=== PATIENT | male | born 1945 | race Caucasian/White ===

== ENCOUNTER 2017-04-25 09:46 | Inpatient (IN) | payer OTHER, MEDICARE ==
[~2017-04-25] VITALS: Ht 180.3 cm; Wt 110.0 kg
[~2017-04-25 09:46] MED LIST: AMLO10TA PO; ASPI-12 PO; ATOR80TA PO; CALC-1197 PO; CYA500T PO; DOCU100C40 PO; FERR325T39 PO; HUM7525 SQ; HYDR-4069 PO; LANTUS SQ; LISI-600 PO; MAGN400T6 PO; METO25TA6 PO; PANT-47 PO; SPIR1TAB PO; SULF500T59 PO; VENL100T4 PO
[2017-04-25] MEDS ORDERED: normal saline 1000ML IV soln IVB ONE (09:55)
[2017-04-25] MEDS ORDERED: morphine 4 MG/ML inj SYRINge IV ONE (10:20)
[2017-04-25] MEDS ORDERED: furosemide 10 MG/1 ML 10ml inj IV ONE (10:20)
[2017-04-25 10:23] LABS: BASOPHILS % (AUTO) 0.5 % (0-1); EOSINOPHILS # (AUTO) 0.2 X10'3 (0-0.9); EOSINOPHILS % (AUTO) 2.2 % (0-6); HEMATOCRIT 37.8 % (42.0-52.0); HEMOGLOBIN 13.3 g/dl (14.0-17.9); LYMPHOCYTES # (AUTO) 2.1 X10'3 (1.1-4.8); LYMPHOCYTES % (AUTO) 20.7 % (21-51); MEAN CORPUSCULAR HEMOGLOBIN 32.6 PG (27.0-31.0); MEAN CORPUSCULAR HGB CONC 35.2 % (33.0-36.5); MEAN CORPUSCULAR VOLUME 92.6 FL (78-98); MEAN PLATELET VOLUME 8.4 FL (7.4-10.4); MONOCYTES # (AUTO) 1.2 X10'3 (0-0.9); MONOCYTES % (AUTO) 12.2 % (2-12); NEUTROPHILS # (AUTO) 6.5 X10'3 (1.8-7.7); NEUTROPHILS % (AUTO) 64.4 % (42-75); PLATELET COUNT 258 X10'3 (140-440); RED BLOOD COUNT 4.08 X10'6 (4.70-6.10); RED CELL DISTRIBUTION WIDTH 13.7 % (11.5-14.5); WHITE BLOOD COUNT 10.1 X10'3 (4.5-11.0)
[2017-04-25] MEDS ORDERED: diltiazem 5mg/ml 5ml inj. IV ONE ×3 (10:25→21:40)
[2017-04-25 10:30] LABS: INR 1.1 INR; PARTIAL THROMBOPLASTIN TIME 26 SECONDS (22-32); PROTHROMBIN TIME 11.5 SECONDS (9.0-12.0)
[2017-04-25] MEDS ORDERED: ipratropium/albuterol 3ml nebule NEB ONE (10:50)
[2017-04-25 10:56] LABS: ALANINE AMINOTRANSFERASE 42 U/L (12-78); ALBUMIN 3.5 G/DL (3.4-5.0); ALKALINE PHOSPHATASE 82 IU/L (46-116); ANION GAP 11 (8-16); ASPARTATE AMINO TRANSFERASE 33 U/L (10-37); BILIRUBIN,TOTAL 0.5 MG/DL (0.1-1.0); BLOOD UREA NITROGEN 26 MG/DL (7-18); BUN/CREATININE RATIO 18.4 (5.4-32.0); CHLORIDE 108 MMOL/L (99-107); CREATININE 1.41 MG/DL (0.60-1.10); GLUCOSE 211 MG/DL (70-104); LIPASE 107 U/L (73-393); POTASSIUM 3.3 MMOL/L (3.5-5.1); SODIUM 145 MMOL/L (135-145); TOTAL CARBON DIOXIDE 25.6 MMOL/L (24-32); TOTAL PROTEIN 6.9 G/DL (6.4-8.2); eGFR 50 ML/MIN
[2017-04-25 11:57] LABS: CLARITY,URINE CLEAR (Clear); COLOR,URINE YELLOW (Yellow); GLUCOSE, URINE NEGATIVE (Neg); KETONES,URINE NEGATIVE (Neg); LEUKOCYTE ESTERASE ,URINE NEGATIVE (Neg); NITRITES, URINE NEGATIVE (Neg); OCCULT BLOOD,URINE NEGATIVE (Neg); PH,URINE 6.5 (4.8-8.0); PROTEIN,URINE 30 mg/dl (Neg); UA COLLECTION TYPE NON-SPECIFIED; UROBILINOGEN,URINE 0.2 E.U/dL (0.2-1.0)
[2017-04-25 12:15] LABS: BACTERIA,URINE NONE SEEN /HPF (Neg); HYALINE CASTS 0-3 /LPF (NEGATIVE); RBC,URINE NONE SEEN /HPF (0-2); SQUAMOUS EPITHELIAL CELL,UR FEW /LPF (FEW); WBC,URINE 0-4 /HPF (0-4)
[2017-04-25] MEDS ORDERED: ALEN70TA48 PO (17:00)
[2017-04-25] MEDS ORDERED: ALLO100T PO (17:01)
[2017-04-25] MEDS ORDERED: BROM2.5T22 PO ×2 (17:02→17:14)
[2017-04-25] MEDS ORDERED: CARB1DRO (17:03)
[2017-04-25] MEDS ORDERED: TOBR5DRO7 EACHEYE (17:07)
[2017-04-25] MEDS ORDERED: CHOL400T32 PO (17:08)
[2017-04-25] MEDS ORDERED: CYA500T PO (17:10)
[2017-04-25] MEDS ORDERED: AMLO10TA PO (17:11)
[2017-04-25] MEDS ORDERED: ASPI-974 PO (17:12)
[2017-04-25] MEDS ORDERED: ATOR40TA71 PO (17:13)
[2017-04-25] MEDS ORDERED: OSC500T PO (17:14)
[2017-04-25] MEDS ORDERED: ERYT1OIN6 EACHEYE (17:16)
[2017-04-25] MEDS ORDERED: FOLI0.4T2 PO (17:16)
[2017-04-25] MEDS ORDERED: HYDR-3686 PO (17:17)
[2017-04-25] MEDS ORDERED: HUM7525 SQ (17:18)
[2017-04-25] MEDS ORDERED: LOSA100T28 PO (17:19)
[2017-04-25] MEDS ORDERED: LANTUS SQ (17:19)
[2017-04-25] MEDS ORDERED: METO25TA6 PO (17:20)
[2017-04-25] MEDS ORDERED: PANT-47 PO (17:21)
[2017-04-25] MEDS ORDERED: POTA10TA21 PO (17:23)
[2017-04-25] MEDS ORDERED: SULF500T59 PO (17:23)
[2017-04-25] MEDS ORDERED: VENL75TA4 PO (17:25)
[2017-04-25 20:00] VITALS: BP 139/97
[2017-04-25] MEDS ORDERED: enoxaparin 100mg/ml syringe SUBCUT ONE (21:00)
[2017-04-25] MEDS ORDERED: dextrose ORAL solution 15 GM/59 ML bottle PO PRN ×2 (21:20)
[2017-04-25] MEDS ORDERED: non-formulary drug (Alendronate Sodium* (Fosamax*) 1 TABLET) PO SCH (21:20)
[2017-04-25] MEDS ORDERED: glucagon, human recombinant 1mg kit SUBCUT PRN (21:20)
[2017-04-25] MEDS ORDERED: insulin Lispro (HumaLOG) vial - multi-dose SQ SCH (21:20)
[2017-04-25] MEDS ORDERED: MESSAGE TO PHARMACY PO ONE (21:20)
[2017-04-25] MEDS ORDERED: dextrose 50%-water 50ml dispensing syringe IV PRN ×2 (21:20)
[2017-04-25 22:26] LABS: HEMOGLOBIN A1C 8.3 % (4.5-6.2)
[2017-04-25 23:00] VITALS: BP 154/96
[2017-04-26] MEDS ORDERED: magnesium Cl slow-release 64mg tablet PO PRN (00:25)
[2017-04-26] MEDS ORDERED: potassium Cl 20 mEq SR tablet PO PRN (00:25)
[2017-04-26] MEDS ORDERED: magnesium 4gm in 100ml NS 100 ML IV PRN (00:25)
[2017-04-26] MEDS ORDERED: potassium Cl 40MEQ/NS 500ml 500 ML IV PRN ×2 (00:25)
[2017-04-26] MEDS ORDERED: magnesium 2GM in 50ml NS 50 ML IV PRN (00:25)
[2017-04-26] MEDS: potassium Cl 20 mEq SR tablet PO PRN ×4 (00:33→15:59)
[2017-04-26 03:00] VITALS: BP 149/95
[2017-04-26 06:30] VITALS: BP 148/107
[2017-04-26] MEDS: pantoprazole 40mg Tablet.DR PO SCH (07:28)
[2017-04-26] MEDS: allopurinol 100mg tablet PO SCH (07:28)
[2017-04-26] MEDS: amLODIPine 5mg tablet PO SCH (07:28)
[2017-04-26] MEDS: venlafaxine 37.5mg tablet PO SCH ×2 (07:29→20:24)
[2017-04-26] MEDS: losartan 50mg tablet PO SCH (07:29)
[2017-04-26] MEDS: sulfaSALAZINE 500 MG tablet PO SCH ×2 (07:29→20:23)
[2017-04-26] MEDS: atorvastatin 20mg tablet PO SCH (07:30)
[2017-04-26] MEDS: hydrOXYzine 25 MG tablet PO SCH ×3 (07:30→20:25)
[2017-04-26] MEDS: tobramycin/dexamethasone ophthalmic suspension EACHEYE SCH ×3 (07:31→20:28)
[2017-04-26 07:50] LABS: BASOPHILS # (AUTO) 0.1 X10'3 (0-0.2); BASOPHILS % (AUTO) 0.7 % (0-1); EOSINOPHILS # (AUTO) 0.3 X10'3 (0-0.9); EOSINOPHILS % (AUTO) 3.4 % (0-6); HEMATOCRIT 38.2 % (42.0-52.0); LYMPHOCYTES # (AUTO) 1.9 X10'3 (1.1-4.8); LYMPHOCYTES % (AUTO) 25.7 % (21-51); MEAN CORPUSCULAR HEMOGLOBIN 32.2 PG (27.0-31.0); MEAN CORPUSCULAR HGB CONC 34.1 % (33.0-36.5); MEAN CORPUSCULAR VOLUME 94.6 FL (78-98); MEAN PLATELET VOLUME 8.7 FL (7.4-10.4); MONOCYTES # (AUTO) 0.9 X10'3 (0-0.9); MONOCYTES % (AUTO) 11.9 % (2-12); NEUTROPHILS # (AUTO) 4.3 X10'3 (1.8-7.7); NEUTROPHILS % (AUTO) 58.3 % (42-75); PLATELET COUNT 245 X10'3 (140-440); RED BLOOD COUNT 4.03 X10'6 (4.70-6.10); RED CELL DISTRIBUTION WIDTH 13.8 % (11.5-14.5); WHITE BLOOD COUNT 7.4 X10'3 (4.5-11.0)
[2017-04-26] MEDS ORDERED: non-formulary drug (Amlodipine Besylate 1 TABLET) PO SCH (08:00)
[2017-04-26] MEDS ORDERED: non-formulary drug (Atorvastatin Calcium 1 TAB) PO SCH (08:00)
[2017-04-26] MEDS ORDERED: VENLAFAXINE HCL PO SCH (08:00)
[2017-04-26] MEDS ORDERED: aspirin 325mg tablet PO SCH (08:00)
[2017-04-26] MEDS ORDERED: non-formulary drug (Losartan Potassium 1 TAB) PO SCH (08:00)
[2017-04-26] MEDS ORDERED: metoprolol tartrate 25mg tablet PO SCH (08:00)
[2017-04-26 08:18] LABS: ALANINE AMINOTRANSFERASE 45 U/L (12-78); ALBUMIN 3.2 G/DL (3.4-5.0); ALKALINE PHOSPHATASE 74 IU/L (46-116); ANION GAP 10 (8-16); ASPARTATE AMINO TRANSFERASE 31 U/L (10-37); BILIRUBIN,TOTAL 0.5 MG/DL (0.1-1.0); BLOOD UREA NITROGEN 27 MG/DL (7-18); BUN/CREATININE RATIO 19.7 (5.4-32.0); CALCIUM 8.5 MG/DL (8.5-10.1); CHLORIDE 110 MMOL/L (99-107); CREATININE 1.37 MG/DL (0.60-1.10); GLUCOSE 67 MG/DL (70-104); POTASSIUM 3.3 MMOL/L (3.5-5.1); SODIUM 148 MMOL/L (135-145); TOTAL PROTEIN 6.4 G/DL (6.4-8.2); eGFR 51 ML/MIN
[2017-04-26] MEDS ORDERED: furosemide 40mg tablet PO SCH (09:15)
[2017-04-26 11:16] VITALS: BP 102/74
[2017-04-26] MEDS ORDERED: metoprolol tartrate 50mg tablet PO ONE (11:30)
[2017-04-26] MEDS ORDERED: acetaminophen 325mg tablet PO PRN (11:40)
[2017-04-26] MEDS: furosemide 20 MG/2 ML vial IV SCH ×2 (12:03→20:23)
[2017-04-26] MEDS: apixaban 5mg tablet PO SCH ×2 (12:38→20:28)
[2017-04-26 15:34] VITALS: BP 116/81
[2017-04-26] MEDS: potassium Cl 20 mEq SR tablet PO SCH (16:41)
[2017-04-26 19:00] VITALS: BP 125/77
[2017-04-26] MEDS ORDERED: HYDROcodone/acetaminophen 5mg/325mg tablet PO PRN (20:15)
[2017-04-26] MEDS ORDERED: HYDROcodone/acetaminophen 10/325mg tab PO PRN (20:15)
[2017-04-26] MEDS: metoprolol tartrate 25mg tablet PO SCH (20:25)
[2017-04-26] MEDS: morphine 2 MG/ML inj. syringe IV PRN (20:30)
[2017-04-26 23:00] VITALS: BP 107/76
[2017-04-27] MEDS: potassium Cl 20 mEq SR tablet PO PRN (00:38)
[2017-04-27] MEDS: morphine 2 MG/ML inj. syringe IV PRN (00:39)
[2017-04-27 06:27] LABS: MAGNESIUM 1.9 MG/DL (1.5-2.4)
[2017-04-27 06:30] VITALS: BP 111/75
[2017-04-27 08:17] LABS: ALBUMIN 3.2 G/DL (3.4-5.0); ANION GAP 13 (8-16); BLOOD UREA NITROGEN 36 MG/DL (7-18); BUN/CREATININE RATIO 20.8 (5.4-32.0); CALCIUM 8.4 MG/DL (8.5-10.1); CHLORIDE 109 MMOL/L (99-107); CREATININE 1.73 MG/DL (0.60-1.10); SODIUM 147 MMOL/L (135-145); TOTAL CARBON DIOXIDE 24.9 MMOL/L (24-32); eGFR 39 ML/MIN
[2017-04-27] MEDS: potassium Cl 20 mEq SR tablet PO SCH ×2 (08:30→17:09)
[2017-04-27] MEDS ORDERED: aspirin 325mg tablet PO SCH (08:30)
[2017-04-27] MEDS ORDERED: naloxone 0.4 mg/ml inj ONE (08:35)
[2017-04-27] MEDS ORDERED: naloxone 0.4 mg/ml inj IV ONE (08:35)
[2017-04-27 08:42] LABS: GLUCOSE 46 MG/DL (70-104)
[2017-04-27] MEDS: apixaban 5mg tablet PO SCH ×2 (08:42→19:48)
[2017-04-27] MEDS: allopurinol 100mg tablet PO SCH (08:42)
[2017-04-27] MEDS: metoprolol tartrate 25mg tablet PO SCH ×2 (08:44→19:48)
[2017-04-27] MEDS: pantoprazole 40mg Tablet.DR PO SCH (08:44)
[2017-04-27] MEDS: tobramycin/dexamethasone ophthalmic suspension EACHEYE SCH ×3 (08:44→20:55)
[2017-04-27] MEDS: amLODIPine 5mg tablet PO SCH (08:44)
[2017-04-27] MEDS: sulfaSALAZINE 500 MG tablet PO SCH ×2 (08:45→19:49)
[2017-04-27] MEDS: hydrOXYzine 25 MG tablet PO SCH ×3 (08:45→20:55)
[2017-04-27] MEDS: furosemide 20 MG/2 ML vial IV SCH ×2 (08:45→19:49)
[2017-04-27] MEDS: losartan 50mg tablet PO SCH (08:45)
[2017-04-27] MEDS: atorvastatin 20mg tablet PO SCH (08:45)
[2017-04-27] MEDS: venlafaxine 37.5mg tablet PO SCH ×2 (08:45→19:48)
[2017-04-27 11:00] VITALS: BP 95/67
[2017-04-27 15:00] VITALS: BP 102/81
[2017-04-27 19:00] VITALS: BP 128/63
[2017-04-27 23:00] VITALS: BP 101/74
[2017-04-28 03:00] VITALS: BP 102/64
[2017-04-28 05:22] LABS: MAGNESIUM 1.9 MG/DL (1.5-2.4)
[2017-04-28 05:23] LABS: POTASSIUM 3.9 MMOL/L (3.5-5.1)
[2017-04-28 06:00] VITALS: BP 104/62
[2017-04-28] MEDS: apixaban 5mg tablet PO SCH ×2 (10:00→19:31)
[2017-04-28] MEDS: hydrOXYzine 25 MG tablet PO SCH ×3 (10:00→19:37)
[2017-04-28] MEDS: allopurinol 100mg tablet PO SCH (10:01)
[2017-04-28] MEDS: venlafaxine 37.5mg tablet PO SCH ×2 (10:01→19:30)
[2017-04-28] MEDS: sulfaSALAZINE 500 MG tablet PO SCH ×2 (10:01→19:30)
[2017-04-28] MEDS: atorvastatin 20mg tablet PO SCH (10:01)
[2017-04-28] MEDS: tobramycin/dexamethasone ophthalmic suspension EACHEYE SCH ×3 (10:02→19:37)
[2017-04-28] MEDS: potassium Cl 20 mEq SR tablet PO SCH ×2 (10:02→19:31)
[2017-04-28] MEDS: aspirin 81mg tab.chew PO SCH (10:02)
[2017-04-28] MEDS: pantoprazole 40mg Tablet.DR PO SCH (10:02)
[2017-04-28] MEDS: furosemide 20 MG/2 ML vial IV SCH ×2 (10:02→19:31)
[2017-04-28] MEDS: metoprolol tartrate 25mg tablet PO SCH ×2 (10:03→19:31)
[2017-04-28 10:07] LABS: ALBUMIN 3.3 G/DL (3.4-5.0); ANION GAP 10 (8-16); BLOOD UREA NITROGEN 45 MG/DL (7-18); BUN/CREATININE RATIO 23.6 (5.4-32.0); CALCIUM 8.4 MG/DL (8.5-10.1); CHLORIDE 104 MMOL/L (99-107); CREATININE 1.91 MG/DL (0.60-1.10); GLUCOSE 261 MG/DL (70-104); SODIUM 140 MMOL/L (135-145); eGFR 35 ML/MIN
[2017-04-28 10:08] LABS: POTASSIUM 3.9 MMOL/L (3.5-5.1)
[2017-04-28 11:00] VITALS: BP 126/87
[2017-04-28 12:20] LABS: BASOPHILS % (AUTO) 0.6 % (0-1); EOSINOPHILS # (AUTO) 0.3 X10'3 (0-0.9); EOSINOPHILS % (AUTO) 3.3 % (0-6); HEMATOCRIT 34.8 % (42.0-52.0); LYMPHOCYTES % (AUTO) 25.8 % (21-51); MEAN CORPUSCULAR HEMOGLOBIN 32.1 PG (27.0-31.0); MEAN CORPUSCULAR HGB CONC 34.4 % (33.0-36.5); MEAN CORPUSCULAR VOLUME 93.1 FL (78-98); MEAN PLATELET VOLUME 8.4 FL (7.4-10.4); MONOCYTES # (AUTO) 0.9 X10'3 (0-0.9); MONOCYTES % (AUTO) 11.1 % (2-12); NEUTROPHILS # (AUTO) 4.7 X10'3 (1.8-7.7); NEUTROPHILS % (AUTO) 59.2 % (42-75); PLATELET COUNT 268 X10'3 (140-440); RED BLOOD COUNT 3.73 X10'6 (4.70-6.10); RED CELL DISTRIBUTION WIDTH 13.8 % (11.5-14.5); WHITE BLOOD COUNT 7.9 X10'3 (4.5-11.0)
[2017-04-28 15:00] VITALS: BP 96/63
[2017-04-28 19:00] VITALS: BP 118/76
[2017-04-28 23:00] VITALS: BP 99/76
[2017-04-29 03:00] VITALS: BP 115/87
[2017-04-29 05:45] LABS: BASOPHILS # (AUTO) 0.1 X10'3 (0-0.2); BASOPHILS % (AUTO) 0.8 % (0-1); EOSINOPHILS # (AUTO) 0.2 X10'3 (0-0.9); EOSINOPHILS % (AUTO) 2.7 % (0-6); HEMATOCRIT 34.6 % (42.0-52.0); LYMPHOCYTES % (AUTO) 28.3 % (21-51); MEAN CORPUSCULAR HGB CONC 34.6 % (33.0-36.5); MEAN CORPUSCULAR VOLUME 92.4 FL (78-98); MEAN PLATELET VOLUME 8.9 FL (7.4-10.4); MONOCYTES # (AUTO) 0.8 X10'3 (0-0.9); NEUTROPHILS % (AUTO) 57.2 % (42-75); PLATELET COUNT 249 X10'3 (140-440); RED BLOOD COUNT 3.75 X10'6 (4.70-6.10); RED CELL DISTRIBUTION WIDTH 13.8 % (11.5-14.5)
[2017-04-29 05:53] LABS: ANION GAP 8 (8-16); BLOOD UREA NITROGEN 40 MG/DL (7-18); CALCIUM 8.3 MG/DL (8.5-10.1); CHLORIDE 108 MMOL/L (99-107); CREATININE 1.74 MG/DL (0.60-1.10); GLUCOSE 202 MG/DL (70-104); MAGNESIUM 1.7 MG/DL (1.5-2.4); SODIUM 145 MMOL/L (135-145); TOTAL CARBON DIOXIDE 29.2 MMOL/L (24-32); eGFR 39 ML/MIN
[2017-04-29 05:54] LABS: POTASSIUM 3.7 MMOL/L (3.5-5.1)
[2017-04-29 06:58] VITALS: BP 127/80
[2017-04-29] MEDS: apixaban 5mg tablet PO SCH ×2 (08:00→20:47)
[2017-04-29] MEDS: furosemide 20 MG/2 ML vial IV SCH ×2 (08:00→20:46)
[2017-04-29] MEDS: metoprolol tartrate 25mg tablet PO SCH ×2 (08:00→20:46)
[2017-04-29] MEDS: sulfaSALAZINE 500 MG tablet PO SCH ×2 (08:12→20:46)
[2017-04-29] MEDS: atorvastatin 20mg tablet PO SCH (08:13)
[2017-04-29] MEDS: aspirin 81mg tab.chew PO SCH (08:13)
[2017-04-29] MEDS: venlafaxine 37.5mg tablet PO SCH ×2 (08:14→20:47)
[2017-04-29] MEDS: hydrOXYzine 25 MG tablet PO SCH ×3 (08:15→20:47)
[2017-04-29] MEDS: pantoprazole 40mg Tablet.DR PO SCH (08:16)
[2017-04-29] MEDS: potassium Cl 20 mEq SR tablet PO SCH ×2 (08:16→17:48)
[2017-04-29] MEDS: allopurinol 100mg tablet PO SCH (08:17)
[2017-04-29] MEDS: tobramycin/dexamethasone ophthalmic suspension EACHEYE SCH ×3 (08:18→20:47)
[2017-04-29 11:00] VITALS: BP 110/86
[2017-04-29] MEDS: LORazepam 0.5 MG tablet PO PRN ×2 (11:23→17:48)
[2017-04-29 17:03] VITALS: BP 104/86
[2017-04-29 19:00] VITALS: BP 139/87
[2017-04-29 23:00] VITALS: BP 97/69
[2017-04-30] VITALS (12 sets, daily range): BP systolic 116–153; BP diastolic 75–116
[2017-04-30] MEDS: LORazepam 0.5 MG tablet PO PRN ×3 (01:57→17:50)
[2017-04-30 06:17] LABS: MAGNESIUM 1.7 MG/DL (1.5-2.4)
[2017-04-30 06:30] LABS: POTASSIUM 3.7 MMOL/L (3.5-5.1)
[2017-04-30] MEDS: hydrOXYzine 25 MG tablet PO SCH ×3 (07:25→22:04)
[2017-04-30] MEDS: venlafaxine 37.5mg tablet PO SCH ×2 (07:25→19:30)
[2017-04-30] MEDS: apixaban 5mg tablet PO SCH ×2 (07:26→19:32)
[2017-04-30] MEDS: pantoprazole 40mg Tablet.DR PO SCH (07:27)
[2017-04-30] MEDS: allopurinol 100mg tablet PO SCH (07:27)
[2017-04-30] MEDS: metoprolol tartrate 25mg tablet PO SCH ×2 (07:27→19:32)
[2017-04-30] MEDS: aspirin 81mg tab.chew PO SCH (07:28)
[2017-04-30] MEDS: potassium Cl 20 mEq SR tablet PO SCH ×2 (07:28→17:50)
[2017-04-30] MEDS: tobramycin/dexamethasone ophthalmic suspension EACHEYE SCH ×3 (07:28→22:05)
[2017-04-30] MEDS: sulfaSALAZINE 500 MG tablet PO SCH ×2 (07:28→19:30)
[2017-04-30] MEDS: furosemide 20 MG/2 ML vial IV SCH ×2 (07:28→19:23)
[2017-04-30] MEDS: atorvastatin 20mg tablet PO SCH (07:29)
[2017-04-30] MEDS ORDERED: diltiazem 5mg/ml 5ml inj. IV STA ×2 (19:15→20:02)
[2017-04-30] MEDS ORDERED: albuterol 2.5 MG/3 ML nebule NEB PRN (20:15)
[2017-04-30 20:35] LABS: ABG BASE EXCESS 0.5 mmol/L (-2.0-3.0); ABG HCO3 23.9 mmol/L (22.0-26.0); ABG OXYGEN SATURATION 89.4 % (95-98); ABG PCO2 (T) 34.8 mmHg (35.0-48.0); ABG PH (T) 7.455 (7.350-7.450); ABG PO2 (T) 61.8 mmHg (83-108); ALLEN'S TEST Positive; FCOHb 0.5 % (0.5-1.5); FLOW 2 L/min; TOTAL HEMOGLOBIN 13.5 G/dl (14.0-18.0)
[2017-04-30] MEDS: diltiazem-D5W 125mg/125ml 125 ML IV SCH (20:57)
[2017-04-30] MEDS ORDERED: furosemide 10 MG/1 ML 10ml inj IV ONE (21:00)
[2017-04-30] MEDS ORDERED: furosemide 40mg/4ml inj ONE (21:07)
[2017-04-30 22:04] LABS: BASOPHILS % (AUTO) 0.4 % (0-1); EOSINOPHILS # (AUTO) 0.2 X10'3 (0-0.9); EOSINOPHILS % (AUTO) 1.6 % (0-6); HEMATOCRIT 38.4 % (42.0-52.0); HEMOGLOBIN 13.1 g/dl (14.0-17.9); LYMPHOCYTES # (AUTO) 1.9 X10'3 (1.1-4.8); LYMPHOCYTES % (AUTO) 15.8 % (21-51); MEAN CORPUSCULAR HEMOGLOBIN 31.9 PG (27.0-31.0); MEAN CORPUSCULAR HGB CONC 34.2 % (33.0-36.5); MEAN CORPUSCULAR VOLUME 93.3 FL (78-98); MEAN PLATELET VOLUME 9.6 FL (7.4-10.4); MONOCYTES # (AUTO) 1.4 X10'3 (0-0.9); MONOCYTES % (AUTO) 11.3 % (2-12); NEUTROPHILS # (AUTO) 8.5 X10'3 (1.8-7.7); NEUTROPHILS % (AUTO) 70.9 % (42-75); PLATELET COUNT 289 X10'3 (140-440); RED BLOOD COUNT 4.12 X10'6 (4.70-6.10); RED CELL DISTRIBUTION WIDTH 13.8 % (11.5-14.5); WHITE BLOOD COUNT 11.9 X10'3 (4.5-11.0)
[2017-04-30 22:22] LABS: ALANINE AMINOTRANSFERASE 58 U/L (12-78); ALBUMIN 3.4 G/DL (3.4-5.0); ALBUMIN/GLOBULIN RATIO 0.9 (1.1-1.5); ALKALINE PHOSPHATASE 87 IU/L (46-116); ANION GAP 12 (8-16); ASPARTATE AMINO TRANSFERASE 24 U/L (10-37); BILIRUBIN,TOTAL 0.5 MG/DL (0.1-1.0); BLOOD UREA NITROGEN 36 MG/DL (7-18); BUN/CREATININE RATIO 25.4 (5.4-32.0); CALCIUM 8.6 MG/DL (8.5-10.1); CHLORIDE 105 MMOL/L (99-107); CREATININE 1.42 MG/DL (0.60-1.10); GLUCOSE 280 MG/DL (70-104); SODIUM 142 MMOL/L (135-145); eGFR 49 ML/MIN
[2017-04-30 22:26] LABS: POTASSIUM 3.6 MMOL/L (3.5-5.1)
[2017-05-01] VITALS (12 sets, daily range): BP systolic 117–177; BP diastolic 93–143
[2017-05-01] MEDS: LORazepam 0.5 MG tablet PO PRN ×3 (01:25→21:19)
[2017-05-01 05:21] LABS: BASOPHILS # (AUTO) 0.1 X10'3 (0-0.2); BASOPHILS % (AUTO) 0.9 % (0-1); EOSINOPHILS # (AUTO) 0.1 X10'3 (0-0.9); EOSINOPHILS % (AUTO) 1.6 % (0-6); HEMATOCRIT 37.5 % (42.0-52.0); LYMPHOCYTES # (AUTO) 1.9 X10'3 (1.1-4.8); LYMPHOCYTES % (AUTO) 20.4 % (21-51); MEAN CORPUSCULAR HEMOGLOBIN 32.1 PG (27.0-31.0); MEAN CORPUSCULAR HGB CONC 34.6 % (33.0-36.5); MEAN CORPUSCULAR VOLUME 92.7 FL (78-98); MEAN PLATELET VOLUME 9.3 FL (7.4-10.4); MONOCYTES # (AUTO) 1.2 X10'3 (0-0.9); MONOCYTES % (AUTO) 12.9 % (2-12); NEUTROPHILS % (AUTO) 64.2 % (42-75); PLATELET COUNT 257 X10'3 (140-440); RED BLOOD COUNT 4.05 X10'6 (4.70-6.10); RED CELL DISTRIBUTION WIDTH 13.6 % (11.5-14.5); WHITE BLOOD COUNT 9.3 X10'3 (4.5-11.0)
[2017-05-01 05:58] LABS: ALBUMIN 3.2 G/DL (3.4-5.0); ANION GAP 12 (8-16); BLOOD UREA NITROGEN 31 MG/DL (7-18); BUN/CREATININE RATIO 22.1 (5.4-32.0); CALCIUM 8.5 MG/DL (8.5-10.1); CHLORIDE 106 MMOL/L (99-107); GLUCOSE 247 MG/DL (70-104); MAGNESIUM 1.5 MG/DL (1.5-2.4); SODIUM 147 MMOL/L (135-145); TOTAL CARBON DIOXIDE 28.6 MMOL/L (24-32); eGFR 50 ML/MIN
[2017-05-01 06:06] LABS: POTASSIUM 2.9 MMOL/L (3.5-5.1)
[2017-05-01] MEDS ORDERED: potassium Cl 20 mEq SR tablet PO PRN ×2 (06:55)
[2017-05-01] MEDS ORDERED: magnesium Cl slow-release 64mg tablet PO PRN (06:55)
[2017-05-01] MEDS ORDERED: magnesium 2GM in 50ml NS 50 ML IV PRN (06:55)
[2017-05-01] MEDS ORDERED: potassium Cl 40MEQ/NS 500ml 500 ML IV PRN ×2 (06:55)
[2017-05-01] MEDS ORDERED: magnesium 4gm in 100ml NS 100 ML IV PRN (06:55)
[2017-05-01] MEDS ORDERED: LIDOcaine 1% 30ml vial 5 ML in potassium Cl 40MEQ/NS 500ml 500 ML IV PRN (07:20)
[2017-05-01] MEDS: allopurinol 100mg tablet PO SCH (09:03)
[2017-05-01] MEDS: apixaban 5mg tablet PO SCH ×2 (09:03→21:19)
[2017-05-01] MEDS: sulfaSALAZINE 500 MG tablet PO SCH ×2 (09:03→21:14)
[2017-05-01] MEDS: venlafaxine 37.5mg tablet PO SCH ×2 (09:04→21:13)
[2017-05-01] MEDS: aspirin 81mg tab.chew PO SCH (09:04)
[2017-05-01] MEDS: hydrOXYzine 25 MG tablet PO SCH ×3 (09:04→21:13)
[2017-05-01] MEDS: atorvastatin 20mg tablet PO SCH (09:04)
[2017-05-01] MEDS: pantoprazole 40mg Tablet.DR PO SCH (09:05)
[2017-05-01] MEDS: furosemide 20 MG/2 ML vial IV SCH ×2 (09:06→20:00)
[2017-05-01] MEDS: tobramycin/dexamethasone ophthalmic suspension EACHEYE SCH ×3 (09:07→21:32)
[2017-05-01] MEDS: metoprolol tartrate 25mg tablet PO SCH ×2 (09:09→21:13)
[2017-05-01] MEDS: potassium Cl 20 mEq SR tablet PO SCH ×2 (09:10→18:05)
[2017-05-01] MEDS ORDERED: hydrALAZINE 20mg/ml inj. IV PRN (12:35)
[2017-05-01] MEDS: diltiazem-D5W 125mg/125ml 125 ML IV SCH (22:15)
[2017-05-02] VITALS (10 sets, daily range): BP systolic 111–142; BP diastolic 82–110
[2017-05-02 06:20] LABS: MAGNESIUM 1.5 MG/DL (1.5-2.4); POTASSIUM 4.1 MMOL/L (3.5-5.1)
[2017-05-02] MEDS: apixaban 5mg tablet PO SCH ×2 (07:46→20:40)
[2017-05-02] MEDS: venlafaxine 37.5mg tablet PO SCH ×2 (08:27→20:42)
[2017-05-02] MEDS: furosemide 20 MG/2 ML vial IV SCH ×2 (08:27→20:42)
[2017-05-02] MEDS: sulfaSALAZINE 500 MG tablet PO SCH ×2 (08:27→20:41)
[2017-05-02] MEDS: tobramycin/dexamethasone ophthalmic suspension EACHEYE SCH ×3 (08:27→21:25)
[2017-05-02] MEDS: allopurinol 100mg tablet PO SCH (08:28)
[2017-05-02] MEDS: aspirin 81mg tab.chew PO SCH (08:28)
[2017-05-02] MEDS: atorvastatin 20mg tablet PO SCH (08:28)
[2017-05-02] MEDS: pantoprazole 40mg Tablet.DR PO SCH (08:28)
[2017-05-02] MEDS: metoprolol tartrate 25mg tablet PO SCH (08:28)
[2017-05-02] MEDS: hydrOXYzine 25 MG tablet PO SCH ×3 (08:28→20:43)
[2017-05-02] MEDS: potassium Cl 20 mEq SR tablet PO SCH ×2 (08:29→18:30)
[2017-05-02 08:42] LABS: ALBUMIN 3.1 G/DL (3.4-5.0); ANION GAP 14 (8-16); BLOOD UREA NITROGEN 33 MG/DL (7-18); BUN/CREATININE RATIO 22.3 (5.4-32.0); CALCIUM 8.4 MG/DL (8.5-10.1); CHLORIDE 106 MMOL/L (99-107); CREATININE 1.48 MG/DL (0.60-1.10); GLUCOSE 246 MG/DL (70-104); SODIUM 144 MMOL/L (135-145); TOTAL CARBON DIOXIDE 24.4 MMOL/L (24-32); eGFR 47 ML/MIN
[2017-05-02 08:44] LABS: BASOPHILS % (AUTO) 0.4 % (0-1); EOSINOPHILS # (AUTO) 0.2 X10'3 (0-0.9); EOSINOPHILS % (AUTO) 1.6 % (0-6); HEMATOCRIT 37.8 % (42.0-52.0); HEMOGLOBIN 12.8 g/dl (14.0-17.9); LYMPHOCYTES # (AUTO) 1.7 X10'3 (1.1-4.8); LYMPHOCYTES % (AUTO) 16.3 % (21-51); MEAN CORPUSCULAR HEMOGLOBIN 31.9 PG (27.0-31.0); MEAN CORPUSCULAR HGB CONC 33.9 % (33.0-36.5); MEAN CORPUSCULAR VOLUME 94.1 FL (78-98); MONOCYTES # (AUTO) 1.1 X10'3 (0-0.9); MONOCYTES % (AUTO) 10.4 % (2-12); NEUTROPHILS # (AUTO) 7.5 X10'3 (1.8-7.7); NEUTROPHILS % (AUTO) 71.3 % (42-75); PLATELET COUNT 278 X10'3 (140-440); RED BLOOD COUNT 4.02 X10'6 (4.70-6.10); RED CELL DISTRIBUTION WIDTH 13.5 % (11.5-14.5); WHITE BLOOD COUNT 10.6 X10'3 (4.5-11.0)
[2017-05-02] MEDS ORDERED: metoprolol tartrate 25mg tablet PO STA (11:04)
[2017-05-02] MEDS: metoprolol tartrate 50mg tablet PO SCH (20:39)
[2017-05-03 03:00] VITALS: BP 123/98
[2017-05-03 06:04] LABS: BASOPHILS # (AUTO) 0.1 X10'3 (0-0.2); BASOPHILS % (AUTO) 0.5 % (0-1); EOSINOPHILS # (AUTO) 0.3 X10'3 (0-0.9); EOSINOPHILS % (AUTO) 2.2 % (0-6); HEMATOCRIT 36.9 % (42.0-52.0); HEMOGLOBIN 12.6 g/dl (14.0-17.9); LYMPHOCYTES # (AUTO) 1.9 X10'3 (1.1-4.8); LYMPHOCYTES % (AUTO) 14.8 % (21-51); MEAN CORPUSCULAR HEMOGLOBIN 31.8 PG (27.0-31.0); MEAN CORPUSCULAR HGB CONC 34.3 % (33.0-36.5); MEAN CORPUSCULAR VOLUME 92.8 FL (78-98); MEAN PLATELET VOLUME 9.1 FL (7.4-10.4); MONOCYTES # (AUTO) 1.3 X10'3 (0-0.9); MONOCYTES % (AUTO) 10.7 % (2-12); NEUTROPHILS % (AUTO) 71.8 % (42-75); PLATELET COUNT 265 X10'3 (140-440); RED BLOOD COUNT 3.97 X10'6 (4.70-6.10); RED CELL DISTRIBUTION WIDTH 13.5 % (11.5-14.5); WHITE BLOOD COUNT 12.5 X10'3 (4.5-11.0)
[2017-05-03 06:22] LABS: ANION GAP 9 (8-16); BLOOD UREA NITROGEN 34 MG/DL (7-18); BUN/CREATININE RATIO 20.5 (5.4-32.0); CALCIUM 8.7 MG/DL (8.5-10.1); CHLORIDE 104 MMOL/L (99-107); CREATININE 1.66 MG/DL (0.60-1.10); GLUCOSE 225 MG/DL (70-104); MAGNESIUM 1.4 MG/DL (1.5-2.4); SODIUM 143 MMOL/L (135-145); TOTAL CARBON DIOXIDE 29.7 MMOL/L (24-32); eGFR 41 ML/MIN
[2017-05-03 07:00] VITALS: BP 137/74
[2017-05-03] MEDS: apixaban 5mg tablet PO SCH ×2 (10:27→20:21)
[2017-05-03] MEDS: metoprolol tartrate 50mg tablet PO SCH ×2 (10:27→20:21)
[2017-05-03] MEDS: atorvastatin 20mg tablet PO SCH (10:27)
[2017-05-03] MEDS: venlafaxine 37.5mg tablet PO SCH ×2 (10:28→20:22)
[2017-05-03] MEDS: aspirin 81mg tab.chew PO SCH (10:28)
[2017-05-03] MEDS: allopurinol 100mg tablet PO SCH (10:28)
[2017-05-03] MEDS: hydrOXYzine 25 MG tablet PO SCH ×3 (10:28→20:31)
[2017-05-03] MEDS: pantoprazole 40mg Tablet.DR PO SCH (10:28)
[2017-05-03] MEDS: furosemide 20 MG/2 ML vial IV SCH ×2 (10:29→20:21)
[2017-05-03] MEDS: sulfaSALAZINE 500 MG tablet PO SCH ×2 (10:29→20:31)
[2017-05-03] MEDS: tobramycin/dexamethasone ophthalmic suspension EACHEYE SCH ×3 (10:30→20:22)
[2017-05-03] MEDS: potassium Cl 20 mEq SR tablet PO SCH ×2 (10:59→17:45)
[2017-05-03 11:00] VITALS: BP 125/104
[2017-05-03 15:00] VITALS: BP 109/95
[2017-05-03 19:00] VITALS: BP 120/84
[2017-05-03] MEDS: LORazepam 0.5 MG tablet PO PRN (20:30)
[2017-05-03 23:00] VITALS: BP 117/94
[2017-05-04] VITALS (14 sets, daily range): BP systolic 103–132; BP diastolic 72–98
[2017-05-04 06:49] LABS: MAGNESIUM 1.6 MG/DL (1.5-2.4)
[2017-05-04 06:50] LABS: POTASSIUM 3.7 MMOL/L (3.5-5.1)
[2017-05-04] MEDS: tobramycin/dexamethasone ophthalmic suspension EACHEYE SCH ×3 (08:00→20:28)
[2017-05-04] MEDS: apixaban 5mg tablet PO SCH ×2 (08:06→20:28)
[2017-05-04] MEDS: furosemide 20 MG/2 ML vial IV SCH ×2 (08:06→20:27)
[2017-05-04] MEDS: allopurinol 100mg tablet PO SCH (08:06)
[2017-05-04] MEDS: pantoprazole 40mg Tablet.DR PO SCH (08:07)
[2017-05-04] MEDS: hydrOXYzine 25 MG tablet PO SCH ×3 (08:08→20:28)
[2017-05-04] MEDS: aspirin 81mg tab.chew PO SCH (08:09)
[2017-05-04] MEDS: sulfaSALAZINE 500 MG tablet PO SCH ×2 (08:09→20:28)
[2017-05-04] MEDS: atorvastatin 20mg tablet PO SCH (08:09)
[2017-05-04] MEDS: potassium Cl 20 mEq SR tablet PO SCH ×2 (08:10→17:47)
[2017-05-04] MEDS: metoprolol tartrate 50mg tablet PO SCH ×2 (08:14→20:28)
[2017-05-04] MEDS: venlafaxine 37.5mg tablet PO SCH ×2 (08:14→20:28)
[2017-05-04] MEDS ORDERED: normal saline 1000ml 1,000 ML IV ONE (10:00)
[2017-05-04] MEDS ORDERED: diltiazem 5mg/ml 5ml inj. IV ONE ×2 (10:00→11:10)
[2017-05-04 11:23] LABS: ALANINE AMINOTRANSFERASE 26 U/L (12-78); ALBUMIN 2.8 G/DL (3.4-5.0); ALBUMIN/GLOBULIN RATIO 0.8 (1.1-1.5); ALKALINE PHOSPHATASE 88 IU/L (46-116); ANION GAP 8 (8-16); ASPARTATE AMINO TRANSFERASE 17 U/L (10-37); BILIRUBIN,TOTAL 0.4 MG/DL (0.1-1.0); BLOOD UREA NITROGEN 36 MG/DL (7-18); BUN/CREATININE RATIO 21.4 (5.4-32.0); CALCIUM 8.7 MG/DL (8.5-10.1); CHLORIDE 103 MMOL/L (99-107); CREATININE 1.68 MG/DL (0.60-1.10); GLUCOSE 323 MG/DL (70-104); POTASSIUM 3.8 MMOL/L (3.5-5.1); SODIUM 143 MMOL/L (135-145); TOTAL CARBON DIOXIDE 31.6 MMOL/L (24-32); TOTAL PROTEIN 6.4 G/DL (6.4-8.2); eGFR 41 ML/MIN
[2017-05-04] MEDS: diltiazem-D5W 125mg/125ml 125 ML IV SCH (11:32)
[2017-05-05] VITALS (10 sets, daily range): BP systolic 97–156; BP diastolic 77–102
[2017-05-05 06:17] LABS: ALANINE AMINOTRANSFERASE 37 U/L (12-78); ALBUMIN 2.8 G/DL (3.4-5.0); ALBUMIN/GLOBULIN RATIO 0.8 (1.1-1.5); ALKALINE PHOSPHATASE 86 IU/L (46-116); ANION GAP 12 (8-16); BILIRUBIN,TOTAL 0.4 MG/DL (0.1-1.0); BLOOD UREA NITROGEN 37 MG/DL (7-18); BUN/CREATININE RATIO 25.9 (5.4-32.0); CALCIUM 8.9 MG/DL (8.5-10.1); CHLORIDE 104 MMOL/L (99-107); CREATININE 1.43 MG/DL (0.60-1.10); GLUCOSE 269 MG/DL (70-104); MAGNESIUM 1.6 MG/DL (1.5-2.4); SODIUM 143 MMOL/L (135-145); TOTAL CARBON DIOXIDE 27.2 MMOL/L (24-32); TOTAL PROTEIN 6.4 G/DL (6.4-8.2); eGFR 49 ML/MIN
[2017-05-05 06:20] LABS: ASPARTATE AMINO TRANSFERASE 19 U/L (10-37); POTASSIUM 3.4 MMOL/L (3.5-5.1)
[2017-05-05 08:04] LABS: BASOPHILS % (AUTO) 0.3 % (0-1); EOSINOPHILS # (AUTO) 0.4 X10'3 (0-0.9); HEMATOCRIT 39.1 % (42.0-52.0); HEMOGLOBIN 13.5 g/dl (14.0-17.9); LYMPHOCYTES % (AUTO) 16.6 % (21-51); MEAN CORPUSCULAR HEMOGLOBIN 31.9 PG (27.0-31.0); MEAN CORPUSCULAR HGB CONC 34.6 % (33.0-36.5); MEAN CORPUSCULAR VOLUME 92.3 FL (78-98); MEAN PLATELET VOLUME 9.2 FL (7.4-10.4); MONOCYTES # (AUTO) 1.1 X10'3 (0-0.9); NEUTROPHILS # (AUTO) 8.5 X10'3 (1.8-7.7); NEUTROPHILS % (AUTO) 71.1 % (42-75); PLATELET COUNT 293 X10'3 (140-440); RED BLOOD COUNT 4.24 X10'6 (4.70-6.10); RED CELL DISTRIBUTION WIDTH 13.7 % (11.5-14.5)
[2017-05-05] MEDS: venlafaxine 37.5mg tablet PO SCH ×2 (08:07→21:05)
[2017-05-05] MEDS: aspirin 81mg tab.chew PO SCH (08:08)
[2017-05-05] MEDS: metoprolol tartrate 50mg tablet PO SCH ×2 (08:08→18:18)
[2017-05-05] MEDS: pantoprazole 40mg Tablet.DR PO SCH (08:08)
[2017-05-05] MEDS: hydrOXYzine 25 MG tablet PO SCH ×3 (08:09→21:05)
[2017-05-05] MEDS: allopurinol 100mg tablet PO SCH (08:09)
[2017-05-05] MEDS: sulfaSALAZINE 500 MG tablet PO SCH ×2 (08:10→21:05)
[2017-05-05] MEDS: apixaban 5mg tablet PO SCH ×2 (08:10→21:05)
[2017-05-05] MEDS: potassium Cl 20 mEq SR tablet PO SCH ×3 (08:10→23:19)
[2017-05-05] MEDS: furosemide 20 MG/2 ML vial IV SCH ×2 (08:11→21:05)
[2017-05-05] MEDS: atorvastatin 20mg tablet PO SCH (08:12)
[2017-05-05] MEDS: tobramycin/dexamethasone ophthalmic suspension EACHEYE SCH ×3 (08:12→21:05)
[2017-05-05] MEDS ORDERED: magnesium 4gm in 100ml NS 100 ML IV PRN (09:05)
[2017-05-05] MEDS ORDERED: magnesium 2GM in 50ml NS 50 ML IV PRN (09:05)
[2017-05-05] MEDS ORDERED: magnesium Cl slow-release 64mg tablet PO PRN (09:05)
[2017-05-05] MEDS ORDERED: potassium Cl 20 mEq SR tablet PO PRN ×2 (09:05)
[2017-05-05] MEDS ORDERED: potassium Cl 40MEQ/NS 500ml 500 ML IV PRN ×2 (09:05)
[2017-05-05] MEDS: diltiazem-D5W 125mg/125ml 125 ML IV SCH (11:57)
[2017-05-05] MEDS ORDERED: metoprolol tartrate 50mg tablet PO ONE (16:55)
[2017-05-06 03:00] VITALS: BP 119/93
[2017-05-06 05:46] LABS: BASOPHILS # (AUTO) 0.1 X10'3 (0-0.2); BASOPHILS % (AUTO) 0.5 % (0-1); EOSINOPHILS # (AUTO) 0.3 X10'3 (0-0.9); EOSINOPHILS % (AUTO) 2.7 % (0-6); LYMPHOCYTES # (AUTO) 1.9 X10'3 (1.1-4.8); LYMPHOCYTES % (AUTO) 15.4 % (21-51); MEAN CORPUSCULAR HEMOGLOBIN 31.9 PG (27.0-31.0); MEAN CORPUSCULAR HGB CONC 34.3 % (33.0-36.5); MEAN CORPUSCULAR VOLUME 93.1 FL (78-98); MEAN PLATELET VOLUME 9.8 FL (7.4-10.4); MONOCYTES # (AUTO) 1.2 X10'3 (0-0.9); MONOCYTES % (AUTO) 9.9 % (2-12); NEUTROPHILS # (AUTO) 8.6 X10'3 (1.8-7.7); NEUTROPHILS % (AUTO) 71.5 % (42-75); PLATELET COUNT 288 X10'3 (140-440); RED BLOOD COUNT 4.08 X10'6 (4.70-6.10); RED CELL DISTRIBUTION WIDTH 13.3 % (11.5-14.5); WHITE BLOOD COUNT 12.1 X10'3 (4.5-11.0)
[2017-05-06 05:59] LABS: ALANINE AMINOTRANSFERASE 42 U/L (12-78); ALBUMIN 2.8 G/DL (3.4-5.0); ALBUMIN/GLOBULIN RATIO 0.8 (1.1-1.5); ALKALINE PHOSPHATASE 92 IU/L (46-116); ANION GAP 12 (8-16); ASPARTATE AMINO TRANSFERASE 18 U/L (10-37); BILIRUBIN,TOTAL 0.4 MG/DL (0.1-1.0); BLOOD UREA NITROGEN 38 MG/DL (7-18); BUN/CREATININE RATIO 26.4 (5.4-32.0); CALCIUM 8.7 MG/DL (8.5-10.1); CHLORIDE 104 MMOL/L (99-107); CREATININE 1.44 MG/DL (0.60-1.10); GLUCOSE 267 MG/DL (70-104); MAGNESIUM 1.6 MG/DL (1.5-2.4); POTASSIUM 3.7 MMOL/L (3.5-5.1); SODIUM 144 MMOL/L (135-145); TOTAL CARBON DIOXIDE 27.7 MMOL/L (24-32); TOTAL PROTEIN 6.3 G/DL (6.4-8.2); eGFR 48 ML/MIN
[2017-05-06 06:30] VITALS: BP 121/84
[2017-05-06] MEDS ORDERED: heparin, porcine 5000 units/ml vial SQ SCH (08:00)
[2017-05-06] MEDS: atorvastatin 20mg tablet PO SCH (08:23)
[2017-05-06] MEDS: sulfaSALAZINE 500 MG tablet PO SCH ×2 (08:23→21:32)
[2017-05-06] MEDS: venlafaxine 37.5mg tablet PO SCH ×2 (08:24→21:33)
[2017-05-06] MEDS: metoprolol tartrate 50mg tablet PO SCH (08:24)
[2017-05-06] MEDS: pantoprazole 40mg Tablet.DR PO SCH (08:24)
[2017-05-06] MEDS: allopurinol 100mg tablet PO SCH (08:24)
[2017-05-06] MEDS: hydrOXYzine 25 MG tablet PO SCH ×3 (08:26→21:33)
[2017-05-06] MEDS: apixaban 5mg tablet PO SCH ×2 (08:26→21:33)
[2017-05-06] MEDS: aspirin 81mg tab.chew PO SCH (08:27)
[2017-05-06] MEDS: furosemide 20 MG/2 ML vial IV SCH ×2 (08:27→21:32)
[2017-05-06] MEDS: tobramycin/dexamethasone ophthalmic suspension EACHEYE SCH ×3 (08:28→21:33)
[2017-05-06 11:00] VITALS: BP 135/84
[2017-05-06] MEDS ORDERED: glucagon, human recombinant 1mg kit SUBCUT PRN (12:45)
[2017-05-06] MEDS ORDERED: insulin Lispro (HumaLOG) vial - multi-dose SQ SCH (12:45)
[2017-05-06] MEDS ORDERED: MESSAGE TO PHARMACY PO ONE (12:45)
[2017-05-06] MEDS ORDERED: insulin regular, human vial - multi-dose SQ SCH (12:45)
[2017-05-06] MEDS ORDERED: dextrose ORAL solution 15 GM/59 ML bottle PO PRN ×2 (12:45)
[2017-05-06] MEDS ORDERED: dextrose 50%-water 50ml dispensing syringe IV PRN ×2 (12:45)
[2017-05-06 15:00] VITALS: BP 135/104
[2017-05-06 18:00] VITALS: BP 137/95
[2017-05-06] MEDS ORDERED: metoprolol tartrate 1mg/ml inj IV ONE (18:45)
[2017-05-06] MEDS: potassium Cl 20 mEq SR tablet PO SCH (19:58)
[2017-05-06] MEDS ORDERED: metoprolol tartrate 25mg tablet PO SCH (20:00)
[2017-05-06] MEDS ORDERED: insulin glargine (Lantus) pen - multi-dose SQ SCH (21:00)
[2017-05-06 22:00] VITALS: BP 124/105
[2017-05-07 02:00] VITALS: BP 125/99
[2017-05-07 06:57] VITALS: BP 128/94
[2017-05-07] MEDS: furosemide 20 MG/2 ML vial IV SCH ×2 (08:33→19:25)
[2017-05-07] MEDS: allopurinol 100mg tablet PO SCH (08:33)
[2017-05-07] MEDS: venlafaxine 37.5mg tablet PO SCH ×2 (08:34→19:25)
[2017-05-07] MEDS: sulfaSALAZINE 500 MG tablet PO SCH ×2 (08:34→19:24)
[2017-05-07] MEDS: hydrOXYzine 25 MG tablet PO SCH ×3 (08:34→20:27)
[2017-05-07] MEDS: aspirin 81mg tab.chew PO SCH (08:35)
[2017-05-07] MEDS: apixaban 5mg tablet PO SCH ×2 (08:35→19:25)
[2017-05-07] MEDS: pantoprazole 40mg Tablet.DR PO SCH (08:35)
[2017-05-07] MEDS: potassium Cl 20 mEq SR tablet PO SCH ×2 (08:36→19:23)
[2017-05-07] MEDS: tobramycin/dexamethasone ophthalmic suspension EACHEYE SCH ×3 (08:36→20:32)
[2017-05-07] MEDS: atorvastatin 20mg tablet PO SCH (08:36)
[2017-05-07] MEDS ORDERED: metoprolol tartrate 50mg tablet PO ONE (09:55)
[2017-05-07 11:00] VITALS: BP 135/107
[2017-05-07 15:00] VITALS: BP 129/101
[2017-05-07 18:00] VITALS: BP 104/53
[2017-05-07] MEDS: metoprolol tartrate 50mg tablet PO SCH (19:24)
[2017-05-07] MEDS ORDERED: metoprolol tartrate 50mg tablet PO SCH (20:00)
[2017-05-07 22:00] VITALS: BP 113/78
[2017-05-08 02:00] VITALS: BP 126/106
[2017-05-08 06:00] VITALS: BP 128/115
[2017-05-08] MEDS: allopurinol 100mg tablet PO SCH (08:33)
[2017-05-08] MEDS: apixaban 5mg tablet PO SCH ×2 (08:33→20:34)
[2017-05-08] MEDS: potassium Cl 20 mEq SR tablet PO SCH ×2 (08:33→17:38)
[2017-05-08] MEDS: atorvastatin 20mg tablet PO SCH (08:33)
[2017-05-08] MEDS: aspirin 81mg tab.chew PO SCH (08:33)
[2017-05-08] MEDS: venlafaxine 37.5mg tablet PO SCH ×2 (08:33→20:34)
[2017-05-08] MEDS: hydrOXYzine 25 MG tablet PO SCH ×3 (08:33→20:34)
[2017-05-08] MEDS: pantoprazole 40mg Tablet.DR PO SCH (08:33)
[2017-05-08] MEDS: tobramycin/dexamethasone ophthalmic suspension EACHEYE SCH ×3 (08:34→20:47)
[2017-05-08] MEDS: furosemide 20 MG/2 ML vial IV SCH ×2 (08:34→20:37)
[2017-05-08] MEDS: sulfaSALAZINE 500 MG tablet PO SCH ×2 (08:34→20:35)
[2017-05-08] MEDS: metoprolol tartrate 50mg tablet PO SCH ×2 (08:35→20:35)
[2017-05-08 11:00] VITALS: BP 113/78
[2017-05-08 15:00] VITALS: BP 153/113
[2017-05-08 19:00] VITALS: BP 149/101
[2017-05-08 22:00] VITALS: BP 124/105
[2017-05-09 02:00] VITALS: BP 117/81
[2017-05-09 06:00] VITALS: BP 155/96
[2017-05-09] MEDS: metoprolol tartrate 50mg tablet PO SCH ×2 (08:14→19:56)
[2017-05-09] MEDS: atorvastatin 20mg tablet PO SCH (08:14)
[2017-05-09] MEDS: hydrOXYzine 25 MG tablet PO SCH ×3 (08:15→19:53)
[2017-05-09] MEDS: sulfaSALAZINE 500 MG tablet PO SCH ×2 (08:15→19:53)
[2017-05-09] MEDS: allopurinol 100mg tablet PO SCH (08:16)
[2017-05-09] MEDS: venlafaxine 37.5mg tablet PO SCH ×2 (08:16→19:52)
[2017-05-09] MEDS: potassium Cl 20 mEq SR tablet PO SCH ×2 (08:16→17:35)
[2017-05-09] MEDS: aspirin 81mg tab.chew PO SCH (08:16)
[2017-05-09] MEDS: pantoprazole 40mg Tablet.DR PO SCH (08:17)
[2017-05-09] MEDS: furosemide 20 MG/2 ML vial IV SCH ×2 (08:17→19:58)
[2017-05-09] MEDS: apixaban 5mg tablet PO SCH ×2 (08:17→19:53)
[2017-05-09] MEDS: tobramycin/dexamethasone ophthalmic suspension EACHEYE SCH ×3 (08:18→19:59)
[2017-05-09 11:00] VITALS: BP 118/93
[2017-05-09 15:00] VITALS: BP_SYST 106
[2017-05-09 19:00] VITALS: BP 101/79
[2017-05-09] MEDS ORDERED: insulin glargine (Lantus) pen - multi-dose SQ SCH (21:00)
[2017-05-09 23:00] VITALS: BP 118/93
[2017-05-10 03:00] VITALS: BP 127/111
[2017-05-10 06:00] VITALS: BP 124/74
[2017-05-10] MEDS: tobramycin/dexamethasone ophthalmic suspension EACHEYE SCH ×3 (08:52→20:00)
[2017-05-10] MEDS: furosemide 20 MG/2 ML vial IV SCH ×2 (08:53→19:46)
[2017-05-10] MEDS: hydrOXYzine 25 MG tablet PO SCH ×3 (08:55→19:47)
[2017-05-10] MEDS: venlafaxine 37.5mg tablet PO SCH ×2 (08:55→19:48)
[2017-05-10] MEDS: sulfaSALAZINE 500 MG tablet PO SCH ×2 (08:55→19:48)
[2017-05-10] MEDS: atorvastatin 20mg tablet PO SCH (08:56)
[2017-05-10] MEDS: apixaban 5mg tablet PO SCH ×2 (08:56→19:48)
[2017-05-10] MEDS: metoprolol tartrate 50mg tablet PO SCH ×2 (08:57→19:47)
[2017-05-10] MEDS: allopurinol 100mg tablet PO SCH (08:58)
[2017-05-10] MEDS: pantoprazole 40mg Tablet.DR PO SCH (08:58)
[2017-05-10] MEDS: potassium Cl 20 mEq SR tablet PO SCH ×2 (08:59→17:27)
[2017-05-10] MEDS: aspirin 81mg tab.chew PO SCH (08:59)
[2017-05-10 11:00] VITALS: BP 112/83
[2017-05-10 15:00] VITALS: BP 126/84
[2017-05-10 19:00] VITALS: BP 114/90
[2017-05-10] MEDS ORDERED: insulin glargine (Lantus) pen - multi-dose SQ SCH (21:00)
[2017-05-10 23:00] VITALS: BP 120/86
[2017-05-11 03:00] VITALS: BP 124/104
[2017-05-11 07:00] VITALS: BP 141/113
[2017-05-11] MEDS: tobramycin/dexamethasone ophthalmic suspension EACHEYE SCH ×2 (07:34→13:12)
[2017-05-11] MEDS: potassium Cl 20 mEq SR tablet PO SCH (07:34)
[2017-05-11] MEDS: aspirin 81mg tab.chew PO SCH (07:34)
[2017-05-11] MEDS: metoprolol tartrate 50mg tablet PO SCH (07:35)
[2017-05-11] MEDS: allopurinol 100mg tablet PO SCH (07:35)
[2017-05-11] MEDS: furosemide 20 MG/2 ML vial IV SCH (07:35)
[2017-05-11] MEDS: atorvastatin 20mg tablet PO SCH (07:35)
[2017-05-11] MEDS: hydrOXYzine 25 MG tablet PO SCH ×2 (07:35→13:11)
[2017-05-11] MEDS: sulfaSALAZINE 500 MG tablet PO SCH (07:35)
[2017-05-11] MEDS: venlafaxine 37.5mg tablet PO SCH (07:35)
[2017-05-11] MEDS: pantoprazole 40mg Tablet.DR PO SCH (07:35)
[2017-05-11] MEDS: apixaban 5mg tablet PO SCH (07:35)
[2017-05-11 11:00] VITALS: BP 122/94
[2017-05-11 15:00] VITALS: BP 134/90
== END 2017-05-11 16:33 | DRG 291 ==
LOC: ER 09:46 → ED HOLD 13:14 → PCU 3S 20:00 → CMPBEDREQ 20:38 → PCU 3S 05-01 18:00
PROVIDERS: ADMIT Internal Medicine; ATTEND Family Medicine
PROC: 5A09357 Assistance with Respiratory Ventilation, Less than 24 Consecutive Hours, Continuous Positive Airway Pressure (ICD-10-PCS; principal; 2017-04-30)
PROC: 0W9B3ZZ Drainage of Left Pleural Cavity, Percutaneous Approach (ICD-10-PCS; 2017-05-02)
PROC: 0W993ZZ Drainage of Right Pleural Cavity, Percutaneous Approach (ICD-10-PCS; 2017-05-02)
DX: I13.0 Hypertensive heart and chronic kidney disease with heart failure and stage 1 through stage 4 chronic kidney disease, or unspecified chronic kidney disease (principal); G93.41 Metabolic encephalopathy; J90 Pleural effusion, not elsewhere classified; E11.22 Type 2 diabetes mellitus with diabetic chronic kidney disease; I50.23 Acute on chronic systolic (congestive) heart failure; C64.1 Malignant neoplasm of right kidney, except renal pelvis; I69.354 Hemiplegia and hemiparesis following cerebral infarction affecting left non-dominant side; M10.9 Gout, unspecified; E11.649 Type 2 diabetes mellitus with hypoglycemia without coma; I48.0 Paroxysmal atrial fibrillation; G47.33 Obstructive sleep apnea (adult) (pediatric); E87.6 Hypokalemia; M54.5 Low back pain; K21.9 Gastro-esophageal reflux disease without esophagitis; N18.9 Chronic kidney disease, unspecified; E78.5 Hyperlipidemia, unspecified; F43.10 Post-traumatic stress disorder, unspecified; M06.9 Rheumatoid arthritis, unspecified; Z88.8 Allergy status to other drugs, medicaments and biological substances; Z79.899 Other long term (current) drug therapy; Z85.46 Personal history of malignant neoplasm of prostate; Z86.010 Personal history of colon polyps; Z87.891 Personal history of nicotine dependence; Z86.69 Personal history of other diseases of the nervous system and sense organs; Z82.0 Family history of epilepsy and other diseases of the nervous system
CPT/HCPCS: 32555; 36415; 36600; 70450; 70544; 70551; 71045; 71046; 74176; 74181; 80048; 80053; 81001; 82803; 82948; 83036; 83605; 83690; 83735; 83880; 84132; 84443; 84484; 85018; 85025; 85610; 85730; 87040; 87070; 93005; 93306; 94640; 94660; 94760; 96374; 96375; 97110; 97116; 97162; 97530; 99291; A4315; A6212; A6213; J0360; J1650; J1815; J1940; J2270; J2310; J3480; J3490; J7030; Q0177

== ENCOUNTER 2017-05-25 12:08 | Inpatient (IN) | payer OTHER, MEDICARE ==
[~2017-05-25] VITALS: Ht 180.3 cm; Wt 100.9 kg
[~2017-05-25 12:08] MED LIST changes: +ALEN70TA48 PO; +ALLO100T PO; -ASPI-12 PO; +ASPI-974 PO; +ATOR40TA71 PO; -ATOR80TA PO; +BROM2.5T22 PO; -CALC-1197 PO; +CARB1DRO; +CHOL400T32 PO; -DOCU100C40 PO; +ERYT1OIN6 EACHEYE; -FERR325T39 PO; +FOLI0.4T2 PO; +HYDR-3686 PO; -HYDR-4069 PO; -LISI-600 PO; +LOSA100T28 PO; -MAGN400T6 PO; +OSC500T PO; +POTA10TA21 PO; -SPIR1TAB PO; +TOBR5DRO7 EACHEYE; -VENL100T4 PO; +VENL75TA4 PO
[2017-05-25] MEDS ORDERED: furosemide 10 MG/1 ML 10ml inj IV ONE (12:30)
[2017-05-25] MEDS ORDERED: metoprolol tartrate 1mg/ml inj IV ONE (12:30)
[2017-05-25 12:51] LABS: BASOPHILS % (AUTO) 0.4 % (0-1); EOSINOPHILS # (AUTO) 0.3 X10'3 (0-0.9); EOSINOPHILS % (AUTO) 3.1 % (0-6); HEMOGLOBIN 14.3 g/dl (14.0-17.9); LYMPHOCYTES # (AUTO) 0.8 X10'3 (1.1-4.8); LYMPHOCYTES % (AUTO) 8.9 % (21-51); MEAN CORPUSCULAR HEMOGLOBIN 31.1 PG (27.0-31.0); MEAN CORPUSCULAR HGB CONC 33.3 % (33.0-36.5); MEAN CORPUSCULAR VOLUME 93.2 FL (78-98); MEAN PLATELET VOLUME 9.3 FL (7.4-10.4); MONOCYTES # (AUTO) 1.2 X10'3 (0-0.9); MONOCYTES % (AUTO) 13.6 % (2-12); NEUTROPHILS # (AUTO) 6.7 X10'3 (1.8-7.7); PLATELET COUNT 232 X10'3 (140-440); RED BLOOD COUNT 4.62 X10'6 (4.70-6.10); RED CELL DISTRIBUTION WIDTH 14.2 % (11.5-14.5); WHITE BLOOD COUNT 9.1 X10'3 (4.5-11.0)
[2017-05-25 13:08] LABS: ALANINE AMINOTRANSFERASE 61 U/L (12-78); ALBUMIN 3.1 G/DL (3.4-5.0); ALBUMIN/GLOBULIN RATIO 0.9 (1.1-1.5); ALKALINE PHOSPHATASE 127 IU/L (46-116); ANION GAP 11 (8-16); ASPARTATE AMINO TRANSFERASE 32 U/L (10-37); BILIRUBIN,TOTAL 0.6 MG/DL (0.1-1.0); BLOOD UREA NITROGEN 48 MG/DL (7-18); BUN/CREATININE RATIO 22.3 (5.4-32.0); CALCIUM 8.9 MG/DL (8.5-10.1); CHLORIDE 106 MMOL/L (99-107); CREATININE 2.15 MG/DL (0.60-1.10); GLUCOSE 167 MG/DL (70-104); SODIUM 142 MMOL/L (135-145); TOTAL CARBON DIOXIDE 25.1 MMOL/L (24-32); TOTAL PROTEIN 6.7 G/DL (6.4-8.2); eGFR 31 ML/MIN
[2017-05-25 13:09] LABS: POTASSIUM 4.4 MMOL/L (3.5-5.1)
[2017-05-25] MEDS ORDERED: diltiazem 5mg/ml 5ml inj. IV ONE (13:10)
[2017-05-25] MEDS ORDERED: amiodarone 50MG/ML inj IV ONE (13:35)
[2017-05-25] MEDS ORDERED: ondansetron/PF 4mg/2ml inj IV PRN (13:45)
[2017-05-25] MEDS ORDERED: mag hydrox/Alum hydrox/simeth 30ml oral suspension PO PRN (13:45)
[2017-05-25] MEDS ORDERED: magnesium hydroxide 30ml (MOM) UD suspension PO PRN (13:45)
[2017-05-25] MEDS ORDERED: albuterol 2.5 MG/3 ML nebule NEB PRN (13:45)
[2017-05-25] MEDS ORDERED: acetaminophen 325mg tablet PO PRN (13:45)
[2017-05-25] MEDS ORDERED: heparin 10,000 units/1 ML INJ IV ONE (13:50)
[2017-05-25] MEDS ORDERED: heparin 10,000 units/1 ML INJ IV PRN (13:50)
[2017-05-25 14:29] LABS: INR 1.2 INR; PARTIAL THROMBOPLASTIN TIME 27 SECONDS (22-32); PROTHROMBIN TIME 12.5 SECONDS (9.0-12.0)
[2017-05-25] MEDS: amiodarone/D5 450MG/250ML BAG 250 ML IV SCH (15:00)
[2017-05-25] MEDS ORDERED: dextrose 50%-water 50ml dispensing syringe IV PRN ×2 (15:25)
[2017-05-25] MEDS ORDERED: dextrose ORAL solution 15 GM/59 ML bottle PO PRN ×2 (15:25)
[2017-05-25] MEDS ORDERED: MESSAGE TO PHARMACY PO ONE (15:25)
[2017-05-25] MEDS ORDERED: glucagon, human recombinant 1mg kit SUBCUT PRN (15:25)
[2017-05-25] MEDS: rivaroxaban 20mg tablet PO SCH (16:37)
[2017-05-25] MEDS: metoprolol tartrate 50mg tablet PO SCH ×2 (19:16→20:00)
[2017-05-25] MEDS: furosemide 10 MG/1 ML 10ml inj IV SCH (20:21)
[2017-05-25] MEDS: insulin glargine (Lantus) pen - multi-dose SQ SCH (21:00)
[2017-05-25] MEDS ORDERED: insulin glargine (Lantus) pen - multi-dose SQ ONE ×2 (21:40→22:49)
[2017-05-25] MEDS ORDERED: insulin Lispro (HumaLOG) vial - multi-dose SQ ONE (21:40)
[2017-05-25] MEDS ORDERED: digoxin 250mcg/ml 2ml ampule IV ONE (21:50)
[2017-05-25] MEDS ORDERED: digoxin 250mcg/ml 2ml ampule IV PRN (22:50)
[2017-05-26] VITALS (17 sets, daily range): BP systolic 102–157; BP diastolic 27–103
[2017-05-26] MEDS: amiodarone/D5 450MG/250ML BAG 250 ML IV SCH ×2 (00:13→15:21)
[2017-05-26 01:03] LABS: HEMATOCRIT 38.6 % (42.0-52.0); HEMOGLOBIN 12.8 g/dl (14.0-17.9); MEAN CORPUSCULAR HEMOGLOBIN 30.6 PG (27.0-31.0); MEAN CORPUSCULAR HGB CONC 33.2 % (33.0-36.5); MEAN CORPUSCULAR VOLUME 92.2 FL (78-98); PLATELET COUNT 228 X10'3 (140-440); RED BLOOD COUNT 4.18 X10'6 (4.70-6.10); RED CELL DISTRIBUTION WIDTH 13.2 % (11.5-14.5); WHITE BLOOD COUNT 8.3 X10'3 (4.5-11.0)
[2017-05-26 01:13] LABS: ALANINE AMINOTRANSFERASE 60 U/L (12-78); ALBUMIN 2.6 G/DL (3.4-5.0); ALBUMIN/GLOBULIN RATIO 0.8 (1.1-1.5); ALKALINE PHOSPHATASE 136 IU/L (46-116); ANION GAP 9 (8-16); ASPARTATE AMINO TRANSFERASE 44 U/L (10-37); BILIRUBIN,TOTAL 0.4 MG/DL (0.1-1.0); BLOOD UREA NITROGEN 48 MG/DL (7-18); BUN/CREATININE RATIO 20.9 (5.4-32.0); CALCIUM 8.2 MG/DL (8.5-10.1); CHLORIDE 105 MMOL/L (99-107); CHOL/HDL RATIO 2.9 (0.00-4.99); CHOLESTEROL 110 MG/DL (0-200); GLUCOSE 263 MG/DL (70-104); HDL CHOLESTEROL 38 MG/DL (35-60); LDL CHOLESTEROL 50 MG/DL (50-100); POTASSIUM 4.1 MMOL/L (3.5-5.1); SODIUM 140 MMOL/L (135-145); TOTAL CARBON DIOXIDE 26.4 MMOL/L (24-32); TOTAL PROTEIN 5.9 G/DL (6.4-8.2); TRIGLYCERIDES 89 MG/DL (20-135); eGFR 28 ML/MIN
[2017-05-26 01:51] LABS: PLATELET ESTIMATE NORMAL; TOTAL CELLS COUNTED 100
[2017-05-26] MEDS: furosemide 10 MG/1 ML 10ml inj IV SCH ×2 (08:51→20:59)
[2017-05-26] MEDS: metoprolol tartrate 50mg tablet PO SCH ×2 (08:58→20:55)
[2017-05-26] MEDS: rivaroxaban 20mg tablet PO SCH (08:58)
[2017-05-26] MEDS: venlafaxine 37.5mg tablet PO SCH ×2 (13:41→20:56)
[2017-05-26] MEDS: sulfaSALAZINE 500 MG tablet PO SCH (20:54)
[2017-05-26] MEDS: metoprolol tartrate 12.5mg (1/2 tablet) PO SCH (20:55)
[2017-05-26] MEDS: insulin glargine (Lantus) pen - multi-dose SQ SCH (21:00)
[2017-05-27] VITALS (7 sets, daily range): BP systolic 116–136; BP diastolic 74–99
[2017-05-27 06:28] LABS: BASOPHILS % (AUTO) 0.6 % (0-1); EOSINOPHILS # (AUTO) 0.3 X10'3 (0-0.9); EOSINOPHILS % (AUTO) 4.1 % (0-6); HEMATOCRIT 38.5 % (42.0-52.0); LYMPHOCYTES # (AUTO) 1.3 X10'3 (1.1-4.8); LYMPHOCYTES % (AUTO) 16.5 % (21-51); MEAN CORPUSCULAR HEMOGLOBIN 31.1 PG (27.0-31.0); MEAN CORPUSCULAR HGB CONC 33.8 % (33.0-36.5); MEAN PLATELET VOLUME 9.8 FL (7.4-10.4); MONOCYTES # (AUTO) 1.4 X10'3 (0-0.9); MONOCYTES % (AUTO) 17.7 % (2-12); NEUTROPHILS # (AUTO) 4.9 X10'3 (1.8-7.7); NEUTROPHILS % (AUTO) 61.1 % (42-75); PLATELET COUNT 212 X10'3 (140-440); RED BLOOD COUNT 4.18 X10'6 (4.70-6.10); WHITE BLOOD COUNT 7.9 X10'3 (4.5-11.0)
[2017-05-27 06:48] LABS: ALANINE AMINOTRANSFERASE 55 U/L (12-78); ALBUMIN 2.6 G/DL (3.4-5.0); ALBUMIN/GLOBULIN RATIO 0.8 (1.1-1.5); ALKALINE PHOSPHATASE 123 IU/L (46-116); ANION GAP 10 (8-16); ASPARTATE AMINO TRANSFERASE 30 U/L (10-37); BILIRUBIN,TOTAL 0.4 MG/DL (0.1-1.0); BLOOD UREA NITROGEN 48 MG/DL (7-18); BUN/CREATININE RATIO 23.6 (5.4-32.0); CALCIUM 8.1 MG/DL (8.5-10.1); CHLORIDE 103 MMOL/L (99-107); CREATININE 2.03 MG/DL (0.60-1.10); GLUCOSE 195 MG/DL (70-104); POTASSIUM 3.3 MMOL/L (3.5-5.1); SODIUM 138 MMOL/L (135-145); TOTAL CARBON DIOXIDE 25.3 MMOL/L (24-32); eGFR 33 ML/MIN
[2017-05-27] MEDS: aspirin 325mg tablet PO SCH (07:15)
[2017-05-27] MEDS: rivaroxaban 20mg tablet PO SCH (07:15)
[2017-05-27] MEDS: losartan 50mg tablet PO SCH (07:17)
[2017-05-27] MEDS: pantoprazole 40mg Tablet.DR PO SCH (07:17)
[2017-05-27] MEDS: atorvastatin 20mg tablet PO SCH (07:18)
[2017-05-27] MEDS: metoprolol tartrate 12.5mg (1/2 tablet) PO SCH (07:19)
[2017-05-27] MEDS: metoprolol tartrate 50mg tablet PO SCH ×2 (07:19→20:28)
[2017-05-27] MEDS: amLODIPine 5mg tablet PO SCH (07:20)
[2017-05-27] MEDS: amiodarone/D5 450MG/250ML BAG 250 ML IV SCH (07:33)
[2017-05-27] MEDS: venlafaxine 37.5mg tablet PO SCH ×2 (07:34→20:27)
[2017-05-27] MEDS: sulfaSALAZINE 500 MG tablet PO SCH ×2 (08:00→20:27)
[2017-05-27] MEDS: furosemide 10 MG/1 ML 10ml inj IV SCH ×2 (08:56→20:28)
[2017-05-27] MEDS: insulin Lispro (HumaLOG) vial - multi-dose SQ SCH ×2 (13:50→18:22)
[2017-05-27] MEDS ORDERED: potassium Cl 40MEQ/NS 500ml 500 ML IV PRN ×2 (18:50)
[2017-05-27] MEDS ORDERED: potassium Cl 20 mEq SR tablet PO PRN (18:50)
[2017-05-27] MEDS: amiodarone 200mg tablet PO SCH (20:27)
[2017-05-27] MEDS: potassium Cl 20 mEq SR tablet PO PRN (20:27)
[2017-05-27] MEDS: insulin glargine (Lantus) pen - multi-dose SQ SCH (21:07)
[2017-05-28] MEDS: potassium Cl 20 mEq SR tablet PO PRN ×4 (00:23→20:59)
[2017-05-28 03:00] VITALS: BP 110/82
[2017-05-28 05:42] LABS: BASOPHILS % (AUTO) 0.3 % (0-1); EOSINOPHILS # (AUTO) 0.2 X10'3 (0-0.9); EOSINOPHILS % (AUTO) 2.5 % (0-6); HEMATOCRIT 37.5 % (42.0-52.0); HEMOGLOBIN 12.7 g/dl (14.0-17.9); LYMPHOCYTES # (AUTO) 1.5 X10'3 (1.1-4.8); LYMPHOCYTES % (AUTO) 18.3 % (21-51); MEAN CORPUSCULAR HEMOGLOBIN 30.9 PG (27.0-31.0); MEAN CORPUSCULAR HGB CONC 33.9 % (33.0-36.5); MEAN CORPUSCULAR VOLUME 91.3 FL (78-98); MEAN PLATELET VOLUME 9.7 FL (7.4-10.4); MONOCYTES # (AUTO) 1.3 X10'3 (0-0.9); MONOCYTES % (AUTO) 16.1 % (2-12); NEUTROPHILS % (AUTO) 62.8 % (42-75); PLATELET COUNT 208 X10'3 (140-440); RED BLOOD COUNT 4.11 X10'6 (4.70-6.10); RED CELL DISTRIBUTION WIDTH 13.9 % (11.5-14.5); WHITE BLOOD COUNT 7.9 X10'3 (4.5-11.0)
[2017-05-28 06:00] VITALS: BP_SYST 124; BP_SYST 143; BP_DIAS 77; BP_DIAS 95
[2017-05-28 06:43] LABS: ALANINE AMINOTRANSFERASE 46 U/L (12-78); ALBUMIN 2.6 G/DL (3.4-5.0); ALBUMIN/GLOBULIN RATIO 0.7 (1.1-1.5); ALKALINE PHOSPHATASE 110 IU/L (46-116); ANION GAP 11 (8-16); BILIRUBIN,TOTAL 0.4 MG/DL (0.1-1.0); BLOOD UREA NITROGEN 47 MG/DL (7-18); CALCIUM 8.3 MG/DL (8.5-10.1); CHLORIDE 103 MMOL/L (99-107); CREATININE 2.04 MG/DL (0.60-1.10); GLUCOSE 139 MG/DL (70-104); MAGNESIUM 1.7 MG/DL (1.5-2.4); SODIUM 141 MMOL/L (135-145); TOTAL CARBON DIOXIDE 27.3 MMOL/L (24-32); TOTAL PROTEIN 6.1 G/DL (6.4-8.2); eGFR 32 ML/MIN
[2017-05-28 06:45] LABS: ASPARTATE AMINO TRANSFERASE 31 U/L (10-37); POTASSIUM 3.2 MMOL/L (3.5-5.1)
[2017-05-28] MEDS: metoprolol tartrate 50mg tablet PO SCH ×2 (07:40→21:00)
[2017-05-28] MEDS: amiodarone 200mg tablet PO SCH ×2 (07:40→20:59)
[2017-05-28] MEDS: rivaroxaban 20mg tablet PO SCH (07:40)
[2017-05-28] MEDS: aspirin 325mg tablet PO SCH (07:40)
[2017-05-28] MEDS: atorvastatin 20mg tablet PO SCH (07:40)
[2017-05-28] MEDS: losartan 50mg tablet PO SCH (07:40)
[2017-05-28] MEDS: amLODIPine 5mg tablet PO SCH (07:41)
[2017-05-28] MEDS: furosemide 10 MG/1 ML 10ml inj IV SCH ×2 (07:41→20:59)
[2017-05-28] MEDS: sulfaSALAZINE 500 MG tablet PO SCH ×2 (09:03→20:59)
[2017-05-28] MEDS: pantoprazole 40mg Tablet.DR PO SCH (09:04)
[2017-05-28] MEDS: venlafaxine 37.5mg tablet PO SCH ×2 (09:04→21:00)
[2017-05-28] MEDS: insulin Lispro (HumaLOG) vial - multi-dose SQ SCH ×2 (09:25→13:52)
[2017-05-28 15:00] VITALS: BP 110/80
[2017-05-28 18:00] VITALS: BP 121/97
[2017-05-28] MEDS: insulin glargine (Lantus) pen - multi-dose SQ SCH (20:58)
[2017-05-28 22:00] VITALS: BP 128/91
[2017-05-29 02:00] VITALS: BP 138/98
[2017-05-29 05:26] LABS: BASOPHILS % (AUTO) 0.4 % (0-1); EOSINOPHILS # (AUTO) 0.2 X10'3 (0-0.9); EOSINOPHILS % (AUTO) 2.5 % (0-6); HEMATOCRIT 37.9 % (42.0-52.0); HEMOGLOBIN 12.7 g/dl (14.0-17.9); LYMPHOCYTES % (AUTO) 13.7 % (21-51); MEAN CORPUSCULAR HEMOGLOBIN 30.9 PG (27.0-31.0); MEAN CORPUSCULAR HGB CONC 33.5 % (33.0-36.5); MEAN CORPUSCULAR VOLUME 92.3 FL (78-98); MEAN PLATELET VOLUME 9.4 FL (7.4-10.4); MONOCYTES # (AUTO) 1.2 X10'3 (0-0.9); MONOCYTES % (AUTO) 16.6 % (2-12); NEUTROPHILS % (AUTO) 66.8 % (42-75); PLATELET COUNT 207 X10'3 (140-440); WHITE BLOOD COUNT 7.4 X10'3 (4.5-11.0)
[2017-05-29 06:00] VITALS: BP 142/97
[2017-05-29 06:17] LABS: ALANINE AMINOTRANSFERASE 44 U/L (12-78); ALBUMIN 2.6 G/DL (3.4-5.0); ALBUMIN/GLOBULIN RATIO 0.7 (1.1-1.5); ALKALINE PHOSPHATASE 106 IU/L (46-116); BILIRUBIN,TOTAL 0.4 MG/DL (0.1-1.0); BLOOD UREA NITROGEN 41 MG/DL (7-18); BUN/CREATININE RATIO 22.2 (5.4-32.0); CALCIUM 8.1 MG/DL (8.5-10.1); CREATININE 1.85 MG/DL (0.60-1.10); MAGNESIUM 1.5 MG/DL (1.5-2.4); TOTAL CARBON DIOXIDE 27.5 MMOL/L (24-32); TOTAL PROTEIN 6.1 G/DL (6.4-8.2); eGFR 36 ML/MIN
[2017-05-29 06:52] LABS: ANION GAP 20 (8-16); CHLORIDE 97 MMOL/L (99-107); POTASSIUM 3.2 MMOL/L (3.5-5.1); SODIUM 144 MMOL/L (135-145)
[2017-05-29 06:58] LABS: ASPARTATE AMINO TRANSFERASE 31 U/L (10-37); GLUCOSE 136 MG/DL (70-104)
[2017-05-29] MEDS: aspirin 325mg tablet PO SCH (08:23)
[2017-05-29] MEDS: atorvastatin 20mg tablet PO SCH (08:23)
[2017-05-29] MEDS: amLODIPine 5mg tablet PO SCH (08:23)
[2017-05-29] MEDS: metoprolol tartrate 50mg tablet PO SCH (08:24)
[2017-05-29] MEDS: losartan 50mg tablet PO SCH (08:24)
[2017-05-29] MEDS: pantoprazole 40mg Tablet.DR PO SCH (08:24)
[2017-05-29] MEDS: amiodarone 200mg tablet PO SCH ×2 (08:24→20:17)
[2017-05-29] MEDS: venlafaxine 37.5mg tablet PO SCH ×2 (08:24→20:18)
[2017-05-29] MEDS: furosemide 10 MG/1 ML 10ml inj IV SCH (08:26)
[2017-05-29] MEDS: rivaroxaban 20mg tablet PO SCH (08:30)
[2017-05-29] MEDS: insulin Lispro (HumaLOG) vial - multi-dose SQ SCH ×2 (08:37→14:23)
[2017-05-29] MEDS: potassium Cl 20 mEq SR tablet PO PRN ×2 (08:42→20:24)
[2017-05-29] MEDS ORDERED: magnesium 2GM in 50ml NS 50 ML IV PRN (09:00)
[2017-05-29] MEDS ORDERED: magnesium 4gm in 100ml NS 100 ML IV PRN (09:00)
[2017-05-29] MEDS: magnesium Cl slow-release 64mg tablet PO PRN (09:31)
[2017-05-29] MEDS: sulfaSALAZINE 500 MG tablet PO SCH ×2 (10:00→20:17)
[2017-05-29] MEDS ORDERED: digoxin 250mcg/ml 2ml ampule IV ONE ×2 (10:35→10:40)
[2017-05-29 11:00] VITALS: BP 119/84
[2017-05-29] MEDS: metoprolol succinate 25mg (24-HOUR) SR. Tablet PO SCH (13:03)
[2017-05-29 15:00] VITALS: BP 104/71
[2017-05-29] MEDS: digoxin 250mcg/ml 2ml ampule IV SCH (17:51)
[2017-05-29 19:00] VITALS: BP 116/70
[2017-05-29] MEDS: furosemide 40mg/4ml inj IV SCH (20:18)
[2017-05-29] MEDS: insulin glargine (Lantus) pen - multi-dose SQ SCH (21:24)
[2017-05-29 23:00] VITALS: BP 110/80
[2017-05-30] MEDS: digoxin 250mcg/ml 2ml ampule IV SCH ×2 (02:21→08:15)
[2017-05-30 03:00] VITALS: BP 131/66
[2017-05-30 04:57] LABS: BASOPHILS % (AUTO) 0.1 % (0-1); EOSINOPHILS # (AUTO) 0.1 X10'3 (0-0.9); EOSINOPHILS % (AUTO) 1.6 % (0-6); HEMATOCRIT 38.5 % (42.0-52.0); HEMOGLOBIN 12.9 g/dl (14.0-17.9); LYMPHOCYTES # (AUTO) 1.3 X10'3 (1.1-4.8); LYMPHOCYTES % (AUTO) 20.7 % (21-51); MEAN CORPUSCULAR HGB CONC 33.5 % (33.0-36.5); MEAN CORPUSCULAR VOLUME 92.5 FL (78-98); MEAN PLATELET VOLUME 9.7 FL (7.4-10.4); MONOCYTES # (AUTO) 1.2 X10'3 (0-0.9); MONOCYTES % (AUTO) 18.8 % (2-12); NEUTROPHILS # (AUTO) 3.8 X10'3 (1.8-7.7); NEUTROPHILS % (AUTO) 58.8 % (42-75); PLATELET COUNT 201 X10'3 (140-440); RED BLOOD COUNT 4.17 X10'6 (4.70-6.10); WHITE BLOOD COUNT 6.4 X10'3 (4.5-11.0)
[2017-05-30 05:38] LABS: ALANINE AMINOTRANSFERASE 40 U/L (12-78); ALBUMIN 2.6 G/DL (3.4-5.0); ALBUMIN/GLOBULIN RATIO 0.7 (1.1-1.5); ALKALINE PHOSPHATASE 102 IU/L (46-116); ANION GAP 10 (8-16); BILIRUBIN,TOTAL 0.4 MG/DL (0.1-1.0); BLOOD UREA NITROGEN 35 MG/DL (7-18); BUN/CREATININE RATIO 21.1 (5.4-32.0); CALCIUM 8.1 MG/DL (8.5-10.1); CHLORIDE 102 MMOL/L (99-107); CREATININE 1.66 MG/DL (0.60-1.10); GLUCOSE 105 MG/DL (70-104); MAGNESIUM 1.5 MG/DL (1.5-2.4); SODIUM 141 MMOL/L (135-145); TOTAL CARBON DIOXIDE 29.3 MMOL/L (24-32); TOTAL PROTEIN 6.5 G/DL (6.4-8.2); eGFR 41 ML/MIN
[2017-05-30 05:45] LABS: POTASSIUM 3.1 MMOL/L (3.5-5.1)
[2017-05-30 05:46] LABS: ASPARTATE AMINO TRANSFERASE 24 U/L (10-37)
[2017-05-30 07:30] VITALS: BP 126/57
[2017-05-30] MEDS: losartan 50mg tablet PO SCH (08:10)
[2017-05-30] MEDS: sulfaSALAZINE 500 MG tablet PO SCH ×2 (08:10→21:20)
[2017-05-30] MEDS: amiodarone 200mg tablet PO SCH ×2 (08:10→21:20)
[2017-05-30] MEDS: metoprolol succinate 25mg (24-HOUR) SR. Tablet PO SCH (08:11)
[2017-05-30] MEDS: venlafaxine 37.5mg tablet PO SCH ×2 (08:11→21:20)
[2017-05-30] MEDS: amLODIPine 5mg tablet PO SCH (08:12)
[2017-05-30] MEDS: pantoprazole 40mg Tablet.DR PO SCH (08:13)
[2017-05-30] MEDS: potassium Cl 20 mEq SR tablet PO PRN ×3 (08:13→16:37)
[2017-05-30] MEDS: aspirin 325mg tablet PO SCH (08:13)
[2017-05-30] MEDS: furosemide 40mg/4ml inj IV SCH ×2 (08:14→21:17)
[2017-05-30] MEDS: rivaroxaban 20mg tablet PO SCH (08:14)
[2017-05-30] MEDS: atorvastatin 20mg tablet PO SCH (08:14)
[2017-05-30] MEDS: insulin Lispro (HumaLOG) vial - multi-dose SQ SCH ×2 (08:50→13:17)
[2017-05-30 11:00] VITALS: BP 107/78
[2017-05-30 15:00] VITALS: BP 89/68
[2017-05-30 19:00] VITALS: BP 106/58
[2017-05-30] MEDS ORDERED: regadenoson 0.4mg/5ml syringe IV PRN (19:55)
[2017-05-30] MEDS ORDERED: metoprolol tartrate 1mg/ml inj IV PRN (19:55)
[2017-05-30] MEDS ORDERED: aminophylline 250mg/10ml inj. IV PRN (19:55)
[2017-05-30] MEDS ORDERED: nitroGLYCERIN 0.4mg SUBLingual tab SL PRN (19:55)
[2017-05-30] MEDS: insulin glargine (Lantus) pen - multi-dose SQ SCH (21:38)
[2017-05-30 23:00] VITALS: BP 122/88
[2017-05-31] VITALS (13 sets, daily range): BP systolic 106–136; BP diastolic 59–85
[2017-05-31 05:14] LABS: BASOPHILS % (AUTO) 0.5 % (0-1); EOSINOPHILS # (AUTO) 0.1 X10'3 (0-0.9); EOSINOPHILS % (AUTO) 2.1 % (0-6); HEMATOCRIT 37.5 % (42.0-52.0); HEMOGLOBIN 12.8 g/dl (14.0-17.9); LYMPHOCYTES # (AUTO) 1.6 X10'3 (1.1-4.8); LYMPHOCYTES % (AUTO) 23.8 % (21-51); MEAN CORPUSCULAR HEMOGLOBIN 30.7 PG (27.0-31.0); MEAN CORPUSCULAR HGB CONC 34.1 % (33.0-36.5); MEAN CORPUSCULAR VOLUME 90.1 FL (78-98); MONOCYTES # (AUTO) 1.4 X10'3 (0-0.9); MONOCYTES % (AUTO) 20.7 % (2-12); NEUTROPHILS # (AUTO) 3.5 X10'3 (1.8-7.7); NEUTROPHILS % (AUTO) 52.9 % (42-75); PLATELET COUNT 183 X10'3 (140-440); RED BLOOD COUNT 4.16 X10'6 (4.70-6.10); RED CELL DISTRIBUTION WIDTH 13.8 % (11.5-14.5); WHITE BLOOD COUNT 6.6 X10'3 (4.5-11.0)
[2017-05-31 05:35] LABS: ALANINE AMINOTRANSFERASE 38 U/L (12-78); ALBUMIN 2.6 G/DL (3.4-5.0); ALBUMIN/GLOBULIN RATIO 0.7 (1.1-1.5); ALKALINE PHOSPHATASE 91 IU/L (46-116); ANION GAP 9 (8-16); BILIRUBIN,TOTAL 0.3 MG/DL (0.1-1.0); BLOOD UREA NITROGEN 33 MG/DL (7-18); BUN/CREATININE RATIO 21.2 (5.4-32.0); CALCIUM 8.1 MG/DL (8.5-10.1); CHLORIDE 102 MMOL/L (99-107); CREATININE 1.56 MG/DL (0.60-1.10); GLUCOSE 120 MG/DL (70-104); MAGNESIUM 1.5 MG/DL (1.5-2.4); SODIUM 143 MMOL/L (135-145); TOTAL CARBON DIOXIDE 32.3 MMOL/L (24-32); TOTAL PROTEIN 6.1 G/DL (6.4-8.2); eGFR 44 ML/MIN
[2017-05-31 05:36] LABS: ASPARTATE AMINO TRANSFERASE 26 U/L (10-37); POTASSIUM 3.2 MMOL/L (3.5-5.1)
[2017-05-31] MEDS: losartan 50mg tablet PO SCH (08:00)
[2017-05-31] MEDS: amLODIPine 5mg tablet PO SCH (08:00)
[2017-05-31] MEDS: venlafaxine 37.5mg tablet PO SCH ×2 (08:00→19:18)
[2017-05-31] MEDS: amiodarone 200mg tablet PO SCH ×2 (08:00→19:17)
[2017-05-31] MEDS: aspirin 325mg tablet PO SCH (08:00)
[2017-05-31] MEDS: metoprolol succinate 25mg (24-HOUR) SR. Tablet PO SCH (08:00)
[2017-05-31] MEDS: furosemide 40mg/4ml inj IV SCH ×2 (08:00→19:23)
[2017-05-31] MEDS: pantoprazole 40mg Tablet.DR PO SCH (08:00)
[2017-05-31] MEDS: rivaroxaban 20mg tablet PO SCH (08:00)
[2017-05-31] MEDS: atorvastatin 20mg tablet PO SCH (08:00)
[2017-05-31] MEDS: digoxin 250mcg/ml 2ml ampule IV SCH (08:00)
[2017-05-31] MEDS: sulfaSALAZINE 500 MG tablet PO SCH ×2 (08:00→19:16)
[2017-05-31] MEDS ORDERED: regadenoson 0.4mg/5ml syringe IV ONE (08:34)
[2017-05-31] MEDS ORDERED: aminophylline inj. 0 ML IV ONE (08:34)
[2017-05-31] MEDS ORDERED: potassium Cl 40MEQ/NS 500ml 500 ML IV PRN ×2 (14:00)
[2017-05-31] MEDS: potassium Cl 20 mEq SR tablet PO PRN ×2 (14:32→19:18)
[2017-05-31] MEDS: insulin Lispro (HumaLOG) vial - multi-dose SQ SCH (19:13)
[2017-05-31] MEDS: insulin glargine (Lantus) pen - multi-dose SQ SCH (22:36)
[2017-06-01 03:00] VITALS: BP 107/73
[2017-06-01 05:18] LABS: BASOPHILS % (AUTO) 0.5 % (0-1); EOSINOPHILS # (AUTO) 0.1 X10'3 (0-0.9); EOSINOPHILS % (AUTO) 2.1 % (0-6); HEMATOCRIT 37.4 % (42.0-52.0); HEMOGLOBIN 12.6 g/dl (14.0-17.9); LYMPHOCYTES # (AUTO) 1.9 X10'3 (1.1-4.8); LYMPHOCYTES % (AUTO) 30.1 % (21-51); MEAN CORPUSCULAR HEMOGLOBIN 30.8 PG (27.0-31.0); MEAN CORPUSCULAR HGB CONC 33.8 % (33.0-36.5); MEAN CORPUSCULAR VOLUME 91.3 FL (78-98); MONOCYTES # (AUTO) 1.2 X10'3 (0-0.9); MONOCYTES % (AUTO) 18.9 % (2-12); NEUTROPHILS % (AUTO) 48.4 % (42-75); PLATELET COUNT 197 X10'3 (140-440); WHITE BLOOD COUNT 6.2 X10'3 (4.5-11.0)
[2017-06-01 05:48] LABS: ALANINE AMINOTRANSFERASE 42 U/L (12-78); ALBUMIN 2.4 G/DL (3.4-5.0); ALBUMIN/GLOBULIN RATIO 0.7 (1.1-1.5); ALKALINE PHOSPHATASE 86 IU/L (46-116); ANION GAP 7 (8-16); ASPARTATE AMINO TRANSFERASE 33 U/L (10-37); BILIRUBIN,TOTAL 0.3 MG/DL (0.1-1.0); BLOOD UREA NITROGEN 29 MG/DL (7-18); BUN/CREATININE RATIO 18.6 (5.4-32.0); CHLORIDE 102 MMOL/L (99-107); CREATININE 1.56 MG/DL (0.60-1.10); GLUCOSE 87 MG/DL (70-104); MAGNESIUM 1.4 MG/DL (1.5-2.4); POTASSIUM 3.2 MMOL/L (3.5-5.1); SODIUM 143 MMOL/L (135-145); TOTAL CARBON DIOXIDE 34.1 MMOL/L (24-32); TOTAL PROTEIN 5.9 G/DL (6.4-8.2); eGFR 44 ML/MIN
[2017-06-01 07:00] VITALS: BP 132/85
[2017-06-01] MEDS: metoprolol succinate 25mg (24-HOUR) SR. Tablet PO SCH (07:35)
[2017-06-01] MEDS: venlafaxine 37.5mg tablet PO SCH ×2 (07:35→20:51)
[2017-06-01] MEDS: amLODIPine 5mg tablet PO SCH (07:35)
[2017-06-01] MEDS: amiodarone 200mg tablet PO SCH ×2 (07:35→20:51)
[2017-06-01] MEDS: magnesium Cl slow-release 64mg tablet PO PRN ×2 (07:35→20:50)
[2017-06-01] MEDS: atorvastatin 20mg tablet PO SCH (07:35)
[2017-06-01] MEDS: sulfaSALAZINE 500 MG tablet PO SCH ×2 (07:35→20:50)
[2017-06-01] MEDS: pantoprazole 40mg Tablet.DR PO SCH (07:35)
[2017-06-01] MEDS: potassium Cl 20 mEq SR tablet PO PRN ×2 (07:35→20:51)
[2017-06-01] MEDS: losartan 50mg tablet PO SCH (07:35)
[2017-06-01] MEDS: furosemide 40mg/4ml inj IV SCH ×2 (07:36→20:51)
[2017-06-01] MEDS ORDERED: rivaroxaban 20mg tablet PO SCH (08:00)
[2017-06-01] MEDS: insulin Lispro (HumaLOG) vial - multi-dose SQ SCH ×3 (09:35→19:22)
[2017-06-01 11:00] VITALS: BP 122/81
[2017-06-01 15:00] VITALS: BP 109/82
[2017-06-01 19:00] VITALS: BP 134/91
[2017-06-01] MEDS ORDERED: magnesium 4gm in 100ml NS 100 ML IV PRN (19:50)
[2017-06-01] MEDS ORDERED: magnesium 2GM in 50ml NS 50 ML IV PRN (19:50)
[2017-06-01] MEDS: insulin glargine (Lantus) pen - multi-dose SQ SCH (21:08)
[2017-06-01 23:00] VITALS: BP 125/81
[2017-06-02 03:29] VITALS: BP 115/81
[2017-06-02 05:28] LABS: BASOPHILS % (AUTO) 0.5 % (0-1); EOSINOPHILS # (AUTO) 0.2 X10'3 (0-0.9); EOSINOPHILS % (AUTO) 2.6 % (0-6); HEMATOCRIT 37.4 % (42.0-52.0); HEMOGLOBIN 12.5 g/dl (14.0-17.9); LYMPHOCYTES # (AUTO) 1.9 X10'3 (1.1-4.8); LYMPHOCYTES % (AUTO) 23.4 % (21-51); MEAN CORPUSCULAR HEMOGLOBIN 30.4 PG (27.0-31.0); MEAN CORPUSCULAR HGB CONC 33.4 % (33.0-36.5); MEAN CORPUSCULAR VOLUME 91.2 FL (78-98); MEAN PLATELET VOLUME 8.8 FL (7.4-10.4); MONOCYTES # (AUTO) 1.1 X10'3 (0-0.9); MONOCYTES % (AUTO) 13.6 % (2-12); NEUTROPHILS # (AUTO) 4.8 X10'3 (1.8-7.7); NEUTROPHILS % (AUTO) 59.9 % (42-75); PLATELET COUNT 200 X10'3 (140-440); RED CELL DISTRIBUTION WIDTH 13.6 % (11.5-14.5)
[2017-06-02 05:55] LABS: ALANINE AMINOTRANSFERASE 49 U/L (12-78); ALBUMIN 2.4 G/DL (3.4-5.0); ALBUMIN/GLOBULIN RATIO 0.7 (1.1-1.5); ALKALINE PHOSPHATASE 79 IU/L (46-116); ANION GAP 7 (8-16); ASPARTATE AMINO TRANSFERASE 45 U/L (10-37); BILIRUBIN,TOTAL 0.4 MG/DL (0.1-1.0); BLOOD UREA NITROGEN 26 MG/DL (7-18); CALCIUM 8.1 MG/DL (8.5-10.1); CHLORIDE 101 MMOL/L (99-107); GLUCOSE 76 MG/DL (70-104); MAGNESIUM 1.3 MG/DL (1.5-2.4); SODIUM 142 MMOL/L (135-145); TOTAL CARBON DIOXIDE 33.8 MMOL/L (24-32); eGFR 55 ML/MIN
[2017-06-02 05:58] LABS: POTASSIUM 2.8 MMOL/L (3.5-5.1)
[2017-06-02 06:00] VITALS: BP 140/78
[2017-06-02] MEDS: venlafaxine 37.5mg tablet PO SCH ×2 (07:51→20:36)
[2017-06-02] MEDS: furosemide 40mg/4ml inj IV SCH ×2 (07:51→20:39)
[2017-06-02] MEDS: atorvastatin 20mg tablet PO SCH (07:51)
[2017-06-02] MEDS: amLODIPine 5mg tablet PO SCH (07:51)
[2017-06-02] MEDS: metoprolol succinate 25mg (24-HOUR) SR. Tablet PO SCH (07:52)
[2017-06-02] MEDS: potassium Cl 20 mEq SR tablet PO PRN ×4 (07:52→16:33)
[2017-06-02] MEDS: losartan 50mg tablet PO SCH (07:52)
[2017-06-02] MEDS: amiodarone 200mg tablet PO SCH ×2 (07:52→20:35)
[2017-06-02] MEDS: sulfaSALAZINE 500 MG tablet PO SCH ×2 (07:52→20:36)
[2017-06-02] MEDS: pantoprazole 40mg Tablet.DR PO SCH (07:52)
[2017-06-02] MEDS: magnesium Cl slow-release 64mg tablet PO PRN ×2 (07:56→20:36)
[2017-06-02] MEDS: insulin Lispro (HumaLOG) vial - multi-dose SQ SCH ×3 (09:50→19:18)
[2017-06-02 11:00] VITALS: BP 110/53
[2017-06-02 15:00] VITALS: BP 99/64
[2017-06-02 19:00] VITALS: BP 107/63
[2017-06-02] MEDS: insulin glargine (Lantus) pen - multi-dose SQ SCH (21:08)
[2017-06-02 23:00] VITALS: BP 101/72
[2017-06-03 03:00] VITALS: BP 112/88
[2017-06-03 06:00] VITALS: BP 128/77
[2017-06-03 06:02] LABS: BASOPHILS % (AUTO) 0.5 % (0-1); EOSINOPHILS # (AUTO) 0.2 X10'3 (0-0.9); EOSINOPHILS % (AUTO) 2.7 % (0-6); HEMOGLOBIN 12.3 g/dl (14.0-17.9); LYMPHOCYTES # (AUTO) 1.9 X10'3 (1.1-4.8); LYMPHOCYTES % (AUTO) 22.6 % (21-51); MEAN CORPUSCULAR HEMOGLOBIN 30.3 PG (27.0-31.0); MEAN CORPUSCULAR HGB CONC 33.3 % (33.0-36.5); MEAN PLATELET VOLUME 8.5 FL (7.4-10.4); MONOCYTES # (AUTO) 1.2 X10'3 (0-0.9); MONOCYTES % (AUTO) 13.7 % (2-12); NEUTROPHILS # (AUTO) 5.2 X10'3 (1.8-7.7); NEUTROPHILS % (AUTO) 60.5 % (42-75); PLATELET COUNT 209 X10'3 (140-440); RED BLOOD COUNT 4.06 X10'6 (4.70-6.10); RED CELL DISTRIBUTION WIDTH 13.6 % (11.5-14.5); WHITE BLOOD COUNT 8.6 X10'3 (4.5-11.0)
[2017-06-03 06:20] LABS: ALANINE AMINOTRANSFERASE 63 U/L (12-78); ALBUMIN 2.5 G/DL (3.4-5.0); ALBUMIN/GLOBULIN RATIO 0.7 (1.1-1.5); ALKALINE PHOSPHATASE 85 IU/L (46-116); ANION GAP 7 (8-16); ASPARTATE AMINO TRANSFERASE 50 U/L (10-37); BILIRUBIN,TOTAL 0.3 MG/DL (0.1-1.0); BLOOD UREA NITROGEN 27 MG/DL (7-18); BUN/CREATININE RATIO 19.4 (5.4-32.0); CALCIUM 8.1 MG/DL (8.5-10.1); CHLORIDE 103 MMOL/L (99-107); CREATININE 1.39 MG/DL (0.60-1.10); GLUCOSE 92 MG/DL (70-104); MAGNESIUM 1.3 MG/DL (1.5-2.4); POTASSIUM 3.6 MMOL/L (3.5-5.1); SODIUM 145 MMOL/L (135-145); TOTAL CARBON DIOXIDE 35.2 MMOL/L (24-32); TOTAL PROTEIN 6.1 G/DL (6.4-8.2); eGFR 51 ML/MIN
[2017-06-03] MEDS: losartan 50mg tablet PO SCH (09:04)
[2017-06-03] MEDS: magnesium Cl slow-release 64mg tablet PO PRN ×2 (09:05→20:32)
[2017-06-03] MEDS: amiodarone 200mg tablet PO SCH ×2 (09:05→20:31)
[2017-06-03] MEDS: amLODIPine 5mg tablet PO SCH (09:05)
[2017-06-03] MEDS: sulfaSALAZINE 500 MG tablet PO SCH ×2 (09:06→20:32)
[2017-06-03] MEDS: venlafaxine 37.5mg tablet PO SCH ×2 (09:06→20:31)
[2017-06-03] MEDS: pantoprazole 40mg Tablet.DR PO SCH (09:07)
[2017-06-03] MEDS: metoprolol succinate 25mg (24-HOUR) SR. Tablet PO SCH (09:07)
[2017-06-03] MEDS: rivaroxaban 15mg tablet PO SCH (09:07)
[2017-06-03] MEDS: atorvastatin 20mg tablet PO SCH (09:07)
[2017-06-03] MEDS: furosemide 40mg/4ml inj IV SCH ×2 (09:08→20:33)
[2017-06-03] MEDS: insulin Lispro (HumaLOG) vial - multi-dose SQ SCH ×3 (09:14→18:53)
[2017-06-03] MEDS ORDERED: FURO-149 PO (10:12)
[2017-06-03] MEDS ORDERED: RIVA15TA PO (10:12)
[2017-06-03] MEDS ORDERED: AMIO200T57 PO (10:12)
[2017-06-03 11:00] VITALS: BP 131/50
[2017-06-03 15:00] VITALS: BP 108/78
[2017-06-03 19:00] VITALS: BP 115/76
[2017-06-03] MEDS: insulin glargine (Lantus) pen - multi-dose SQ SCH (20:38)
[2017-06-03 23:00] VITALS: BP 112/74
[2017-06-04 03:00] VITALS: BP 126/66
[2017-06-04 05:00] LABS: BASOPHILS % (AUTO) 0.4 % (0-1); EOSINOPHILS # (AUTO) 0.3 X10'3 (0-0.9); EOSINOPHILS % (AUTO) 2.5 % (0-6); HEMATOCRIT 37.4 % (42.0-52.0); HEMOGLOBIN 12.7 g/dl (14.0-17.9); LYMPHOCYTES # (AUTO) 1.9 X10'3 (1.1-4.8); LYMPHOCYTES % (AUTO) 18.3 % (21-51); MEAN CORPUSCULAR HEMOGLOBIN 30.6 PG (27.0-31.0); MEAN CORPUSCULAR VOLUME 89.8 FL (78-98); MEAN PLATELET VOLUME 8.2 FL (7.4-10.4); MONOCYTES # (AUTO) 1.4 X10'3 (0-0.9); MONOCYTES % (AUTO) 13.2 % (2-12); NEUTROPHILS # (AUTO) 6.8 X10'3 (1.8-7.7); NEUTROPHILS % (AUTO) 65.6 % (42-75); PLATELET COUNT 217 X10'3 (140-440); RED BLOOD COUNT 4.16 X10'6 (4.70-6.10); RED CELL DISTRIBUTION WIDTH 13.5 % (11.5-14.5); WHITE BLOOD COUNT 10.4 X10'3 (4.5-11.0)
[2017-06-04 05:30] LABS: ALANINE AMINOTRANSFERASE 59 U/L (12-78); ALBUMIN 2.6 G/DL (3.4-5.0); ALBUMIN/GLOBULIN RATIO 0.7 (1.1-1.5); ALKALINE PHOSPHATASE 88 IU/L (46-116); ANION GAP 7 (8-16); ASPARTATE AMINO TRANSFERASE 39 U/L (10-37); BILIRUBIN,TOTAL 0.4 MG/DL (0.1-1.0); BLOOD UREA NITROGEN 23 MG/DL (7-18); BUN/CREATININE RATIO 17.4 (5.4-32.0); CALCIUM 8.3 MG/DL (8.5-10.1); CHLORIDE 100 MMOL/L (99-107); CREATININE 1.32 MG/DL (0.60-1.10); GLUCOSE 161 MG/DL (70-104); MAGNESIUM 1.4 MG/DL (1.5-2.4); SODIUM 143 MMOL/L (135-145); TOTAL CARBON DIOXIDE 36.5 MMOL/L (24-32); TOTAL PROTEIN 6.4 G/DL (6.4-8.2); eGFR 54 ML/MIN
[2017-06-04 05:41] LABS: POTASSIUM 2.8 MMOL/L (3.5-5.1)
[2017-06-04 06:00] VITALS: BP 136/79
[2017-06-04] MEDS ORDERED: magnesium 2GM in 50ml NS 50 ML IV PRN (06:30)
[2017-06-04] MEDS ORDERED: magnesium Cl slow-release 64mg tablet PO PRN (06:30)
[2017-06-04] MEDS ORDERED: potassium Cl 40MEQ/NS 500ml 500 ML IV PRN ×2 (06:30)
[2017-06-04] MEDS ORDERED: magnesium 4gm in 100ml NS 100 ML IV PRN (06:30)
[2017-06-04] MEDS: amLODIPine 5mg tablet PO SCH (09:09)
[2017-06-04] MEDS: magnesium Cl slow-release 64mg tablet PO PRN (09:09)
[2017-06-04] MEDS: rivaroxaban 15mg tablet PO SCH (09:11)
[2017-06-04] MEDS: sulfaSALAZINE 500 MG tablet PO SCH ×2 (09:11→19:47)
[2017-06-04] MEDS: venlafaxine 37.5mg tablet PO SCH ×2 (09:11→19:47)
[2017-06-04] MEDS: potassium Cl 20 mEq SR tablet PO PRN ×3 (09:11→16:40)
[2017-06-04] MEDS: losartan 50mg tablet PO SCH (09:12)
[2017-06-04] MEDS: atorvastatin 20mg tablet PO SCH (09:12)
[2017-06-04] MEDS: pantoprazole 40mg Tablet.DR PO SCH (09:13)
[2017-06-04] MEDS: amiodarone 200mg tablet PO SCH ×2 (09:13→19:47)
[2017-06-04] MEDS: metoprolol succinate 25mg (24-HOUR) SR. Tablet PO SCH (09:23)
[2017-06-04] MEDS: furosemide 40mg/4ml inj IV SCH ×2 (09:24→20:00)
[2017-06-04] MEDS: insulin Lispro (HumaLOG) vial - multi-dose SQ SCH ×3 (09:35→19:52)
[2017-06-04 11:00] VITALS: BP 113/76
[2017-06-04 15:00] VITALS: BP 107/66
[2017-06-04 19:00] VITALS: BP 90/60
[2017-06-04] MEDS: insulin glargine (Lantus) pen - multi-dose SQ SCH (22:25)
[2017-06-04 23:00] VITALS: BP 103/68
[2017-06-05 03:00] VITALS: BP 109/81
[2017-06-05 06:01] LABS: MAGNESIUM 1.6 MG/DL (1.5-2.4)
[2017-06-05 06:30] LABS: POTASSIUM 3.8 MMOL/L (3.5-5.1)
[2017-06-05 07:00] VITALS: BP 97/61
[2017-06-05] MEDS: sulfaSALAZINE 500 MG tablet PO SCH ×2 (07:49→20:21)
[2017-06-05] MEDS: rivaroxaban 15mg tablet PO SCH (07:50)
[2017-06-05] MEDS: furosemide 40mg/4ml inj IV SCH (07:50)
[2017-06-05] MEDS: venlafaxine 37.5mg tablet PO SCH ×2 (07:50→20:22)
[2017-06-05] MEDS: metoprolol succinate 25mg (24-HOUR) SR. Tablet PO SCH (07:50)
[2017-06-05] MEDS: pantoprazole 40mg Tablet.DR PO SCH (07:50)
[2017-06-05] MEDS: losartan 50mg tablet PO SCH (07:50)
[2017-06-05] MEDS: atorvastatin 20mg tablet PO SCH (07:50)
[2017-06-05] MEDS: amLODIPine 5mg tablet PO SCH (07:50)
[2017-06-05] MEDS: amiodarone 200mg tablet PO SCH ×2 (07:50→20:21)
[2017-06-05] MEDS: insulin Lispro (HumaLOG) vial - multi-dose SQ SCH ×3 (09:39→18:46)
[2017-06-05 11:00] VITALS: BP 100/53
[2017-06-05 12:15] LABS: BASOPHILS % (AUTO) 0.3 % (0-1); EOSINOPHILS # (AUTO) 0.3 X10'3 (0-0.9); HEMATOCRIT 37.2 % (42.0-52.0); HEMOGLOBIN 12.4 g/dl (14.0-17.9); LYMPHOCYTES # (AUTO) 1.9 X10'3 (1.1-4.8); LYMPHOCYTES % (AUTO) 18.8 % (21-51); MEAN CORPUSCULAR HEMOGLOBIN 30.4 PG (27.0-31.0); MEAN CORPUSCULAR HGB CONC 33.3 % (33.0-36.5); MEAN CORPUSCULAR VOLUME 91.2 FL (78-98); MEAN PLATELET VOLUME 8.4 FL (7.4-10.4); MONOCYTES # (AUTO) 1.2 X10'3 (0-0.9); MONOCYTES % (AUTO) 11.8 % (2-12); NEUTROPHILS # (AUTO) 6.8 X10'3 (1.8-7.7); NEUTROPHILS % (AUTO) 66.1 % (42-75); PLATELET COUNT 245 X10'3 (140-440); RED BLOOD COUNT 4.07 X10'6 (4.70-6.10); RED CELL DISTRIBUTION WIDTH 13.8 % (11.5-14.5); WHITE BLOOD COUNT 10.3 X10'3 (4.5-11.0)
[2017-06-05 12:37] LABS: ALANINE AMINOTRANSFERASE 50 U/L (12-78); ALBUMIN 2.6 G/DL (3.4-5.0); ALBUMIN/GLOBULIN RATIO 0.6 (1.1-1.5); ALKALINE PHOSPHATASE 85 IU/L (46-116); ANION GAP 4 (8-16); ASPARTATE AMINO TRANSFERASE 29 U/L (10-37); BILIRUBIN,TOTAL 0.4 MG/DL (0.1-1.0); BLOOD UREA NITROGEN 24 MG/DL (7-18); BUN/CREATININE RATIO 17.4 (5.4-32.0); CALCIUM 8.6 MG/DL (8.5-10.1); CHLORIDE 100 MMOL/L (99-107); CREATININE 1.38 MG/DL (0.60-1.10); GLUCOSE 208 MG/DL (70-104); POTASSIUM 3.7 MMOL/L (3.5-5.1); SODIUM 140 MMOL/L (135-145); TOTAL PROTEIN 6.7 G/DL (6.4-8.2); eGFR 51 ML/MIN
[2017-06-05 15:00] VITALS: BP 113/76
[2017-06-05 18:00] VITALS: BP 98/68
[2017-06-05] MEDS: insulin glargine (Lantus) pen - multi-dose SQ SCH (20:48)
[2017-06-05 22:00] VITALS: BP 125/81
[2017-06-06 02:00] VITALS: BP 137/81
[2017-06-06 04:58] LABS: BASOPHILS % (AUTO) 0.4 % (0-1); EOSINOPHILS # (AUTO) 0.2 X10'3 (0-0.9); EOSINOPHILS % (AUTO) 2.3 % (0-6); HEMATOCRIT 35.8 % (42.0-52.0); HEMOGLOBIN 11.8 g/dl (14.0-17.9); LYMPHOCYTES # (AUTO) 2.3 X10'3 (1.1-4.8); LYMPHOCYTES % (AUTO) 21.7 % (21-51); MEAN CORPUSCULAR HEMOGLOBIN 29.9 PG (27.0-31.0); MEAN CORPUSCULAR VOLUME 90.5 FL (78-98); MEAN PLATELET VOLUME 8.8 FL (7.4-10.4); MONOCYTES # (AUTO) 1.4 X10'3 (0-0.9); MONOCYTES % (AUTO) 13.5 % (2-12); NEUTROPHILS # (AUTO) 6.7 X10'3 (1.8-7.7); NEUTROPHILS % (AUTO) 62.1 % (42-75); PLATELET COUNT 231 X10'3 (140-440); RED BLOOD COUNT 3.95 X10'6 (4.70-6.10); WHITE BLOOD COUNT 10.6 X10'3 (4.5-11.0)
[2017-06-06 05:10] LABS: ALANINE AMINOTRANSFERASE 47 U/L (12-78); ALBUMIN 2.4 G/DL (3.4-5.0); ALBUMIN/GLOBULIN RATIO 0.6 (1.1-1.5); ALKALINE PHOSPHATASE 76 IU/L (46-116); ANION GAP 5 (8-16); ASPARTATE AMINO TRANSFERASE 30 U/L (10-37); BILIRUBIN,TOTAL 0.4 MG/DL (0.1-1.0); BLOOD UREA NITROGEN 24 MG/DL (7-18); BUN/CREATININE RATIO 17.8 (5.4-32.0); CALCIUM 8.6 MG/DL (8.5-10.1); CHLORIDE 101 MMOL/L (99-107); CREATININE 1.35 MG/DL (0.60-1.10); GLUCOSE 92 MG/DL (70-104); MAGNESIUM 1.7 MG/DL (1.5-2.4); POTASSIUM 3.3 MMOL/L (3.5-5.1); SODIUM 142 MMOL/L (135-145); TOTAL CARBON DIOXIDE 35.6 MMOL/L (24-32); TOTAL PROTEIN 6.4 G/DL (6.4-8.2); eGFR 52 ML/MIN
[2017-06-06 07:00] VITALS: BP 133/97
[2017-06-06] MEDS: venlafaxine 37.5mg tablet PO SCH ×2 (07:26→20:32)
[2017-06-06] MEDS: potassium Cl 20 mEq SR tablet PO PRN ×2 (07:26→16:04)
[2017-06-06] MEDS: atorvastatin 20mg tablet PO SCH (07:28)
[2017-06-06] MEDS: sulfaSALAZINE 500 MG tablet PO SCH ×2 (07:29→20:33)
[2017-06-06] MEDS: amLODIPine 5mg tablet PO SCH (07:30)
[2017-06-06] MEDS: losartan 50mg tablet PO SCH (07:30)
[2017-06-06] MEDS: amiodarone 200mg tablet PO SCH ×2 (07:30→20:32)
[2017-06-06] MEDS: pantoprazole 40mg Tablet.DR PO SCH (07:30)
[2017-06-06] MEDS: metoprolol succinate 25mg (24-HOUR) SR. Tablet PO SCH (07:30)
[2017-06-06] MEDS: furosemide 40mg/4ml inj IV SCH (07:33)
[2017-06-06] MEDS: rivaroxaban 15mg tablet PO SCH (08:38)
[2017-06-06] MEDS: insulin Lispro (HumaLOG) vial - multi-dose SQ SCH ×2 (08:38→13:57)
[2017-06-06 11:00] VITALS: BP 94/64
[2017-06-06 15:00] VITALS: BP 110/68
[2017-06-06 18:00] VITALS: BP 104/72
[2017-06-06] MEDS: insulin glargine (Lantus) pen - multi-dose SQ SCH (20:43)
[2017-06-06 22:00] VITALS: BP 111/84
[2017-06-07 03:00] VITALS: BP 142/78
[2017-06-07 05:20] LABS: BASOPHILS # (AUTO) 0.1 X10'3 (0-0.2); BASOPHILS % (AUTO) 0.8 % (0-1); EOSINOPHILS # (AUTO) 0.3 X10'3 (0-0.9); EOSINOPHILS % (AUTO) 3.3 % (0-6); HEMATOCRIT 36.6 % (42.0-52.0); HEMOGLOBIN 12.2 g/dl (14.0-17.9); LYMPHOCYTES # (AUTO) 2.3 X10'3 (1.1-4.8); LYMPHOCYTES % (AUTO) 27.7 % (21-51); MEAN CORPUSCULAR HEMOGLOBIN 30.4 PG (27.0-31.0); MEAN CORPUSCULAR HGB CONC 33.3 % (33.0-36.5); MEAN CORPUSCULAR VOLUME 91.2 FL (78-98); MEAN PLATELET VOLUME 8.7 FL (7.4-10.4); MONOCYTES % (AUTO) 11.9 % (2-12); NEUTROPHILS # (AUTO) 4.6 X10'3 (1.8-7.7); NEUTROPHILS % (AUTO) 56.3 % (42-75); PLATELET COUNT 238 X10'3 (140-440); RED BLOOD COUNT 4.01 X10'6 (4.70-6.10); RED CELL DISTRIBUTION WIDTH 13.5 % (11.5-14.5); WHITE BLOOD COUNT 8.2 X10'3 (4.5-11.0)
[2017-06-07 05:43] LABS: ALANINE AMINOTRANSFERASE 53 U/L (12-78); ALBUMIN 2.5 G/DL (3.4-5.0); ALBUMIN/GLOBULIN RATIO 0.6 (1.1-1.5); ALKALINE PHOSPHATASE 80 IU/L (46-116); ANION GAP 7 (8-16); ASPARTATE AMINO TRANSFERASE 36 U/L (10-37); BILIRUBIN,TOTAL 0.4 MG/DL (0.1-1.0); BLOOD UREA NITROGEN 27 MG/DL (7-18); BUN/CREATININE RATIO 20.8 (5.4-32.0); CALCIUM 8.9 MG/DL (8.5-10.1); CHLORIDE 101 MMOL/L (99-107); GLUCOSE 169 MG/DL (70-104); POTASSIUM 3.5 MMOL/L (3.5-5.1); SODIUM 142 MMOL/L (135-145); TOTAL CARBON DIOXIDE 33.9 MMOL/L (24-32); TOTAL PROTEIN 6.6 G/DL (6.4-8.2); eGFR 55 ML/MIN
[2017-06-07 07:00] VITALS: BP 123/82
[2017-06-07] MEDS: insulin Lispro (HumaLOG) vial - multi-dose SQ SCH ×2 (08:40→20:13)
[2017-06-07] MEDS: atorvastatin 20mg tablet PO SCH (08:41)
[2017-06-07] MEDS: amLODIPine 5mg tablet PO SCH (08:42)
[2017-06-07] MEDS: furosemide 20MG tablet PO SCH (08:42)
[2017-06-07] MEDS: pantoprazole 40mg Tablet.DR PO SCH (08:42)
[2017-06-07] MEDS: rivaroxaban 15mg tablet PO SCH (08:42)
[2017-06-07] MEDS: metoprolol succinate 25mg (24-HOUR) SR. Tablet PO SCH (08:42)
[2017-06-07] MEDS: amiodarone 200mg tablet PO SCH ×2 (08:42→20:19)
[2017-06-07] MEDS: losartan 50mg tablet PO SCH (08:43)
[2017-06-07] MEDS: venlafaxine 37.5mg tablet PO SCH ×2 (08:43→20:17)
[2017-06-07] MEDS: furosemide 40mg/4ml inj IV SCH (08:43)
[2017-06-07] MEDS: sulfaSALAZINE 500 MG tablet PO SCH ×2 (08:43→20:19)
[2017-06-07 11:00] VITALS: BP 117/83
[2017-06-07] MEDS ORDERED: METO25TA6 PO (12:54)
[2017-06-07] MEDS ORDERED: LANTUS SQ (12:59)
[2017-06-07] MEDS ORDERED: ASPI-1265 PO (12:59)
[2017-06-07 15:00] VITALS: BP 111/57
[2017-06-07 20:17] VITALS: BP 108/77
[2017-06-07 22:00] VITALS: BP 108/78
[2017-06-07] MEDS: insulin glargine (Lantus) pen - multi-dose SQ SCH (22:07)
[2017-06-08 02:00] VITALS: BP 102/75
[2017-06-08 05:51] LABS: ALANINE AMINOTRANSFERASE 50 U/L (12-78); ALBUMIN 2.4 G/DL (3.4-5.0); ALBUMIN/GLOBULIN RATIO 0.6 (1.1-1.5); ALKALINE PHOSPHATASE 72 IU/L (46-116); ANION GAP 3 (8-16); ASPARTATE AMINO TRANSFERASE 28 U/L (10-37); BILIRUBIN,TOTAL 0.4 MG/DL (0.1-1.0); BLOOD UREA NITROGEN 26 MG/DL (7-18); CALCIUM 8.7 MG/DL (8.5-10.1); CHLORIDE 102 MMOL/L (99-107); CREATININE 1.37 MG/DL (0.60-1.10); GLUCOSE 119 MG/DL (70-104); POTASSIUM 3.8 MMOL/L (3.5-5.1); SODIUM 143 MMOL/L (135-145); TOTAL CARBON DIOXIDE 37.9 MMOL/L (24-32); TOTAL PROTEIN 6.2 G/DL (6.4-8.2); eGFR 51 ML/MIN
[2017-06-08 05:52] LABS: BASOPHILS % (AUTO) 0.6 % (0-1); EOSINOPHILS # (AUTO) 0.2 X10'3 (0-0.9); EOSINOPHILS % (AUTO) 2.9 % (0-6); HEMATOCRIT 34.8 % (42.0-52.0); HEMOGLOBIN 11.9 g/dl (14.0-17.9); LYMPHOCYTES # (AUTO) 2.3 X10'3 (1.1-4.8); LYMPHOCYTES % (AUTO) 29.5 % (21-51); MEAN CORPUSCULAR HEMOGLOBIN 30.6 PG (27.0-31.0); MEAN CORPUSCULAR VOLUME 89.8 FL (78-98); MEAN PLATELET VOLUME 8.7 FL (7.4-10.4); MONOCYTES % (AUTO) 12.5 % (2-12); NEUTROPHILS # (AUTO) 4.3 X10'3 (1.8-7.7); NEUTROPHILS % (AUTO) 54.5 % (42-75); PLATELET COUNT 235 X10'3 (140-440); RED BLOOD COUNT 3.88 X10'6 (4.70-6.10); WHITE BLOOD COUNT 7.8 X10'3 (4.5-11.0)
[2017-06-08 06:00] VITALS: BP 149/95
[2017-06-08] MEDS: furosemide 40mg/4ml inj IV SCH (08:00)
[2017-06-08] MEDS: losartan 50mg tablet PO SCH (08:20)
[2017-06-08] MEDS: atorvastatin 20mg tablet PO SCH (08:20)
[2017-06-08] MEDS: metoprolol succinate 25mg (24-HOUR) SR. Tablet PO SCH (08:20)
[2017-06-08] MEDS: sulfaSALAZINE 500 MG tablet PO SCH (08:22)
[2017-06-08] MEDS: furosemide 20MG tablet PO SCH (08:22)
[2017-06-08] MEDS: venlafaxine 37.5mg tablet PO SCH (08:22)
[2017-06-08] MEDS: pantoprazole 40mg Tablet.DR PO SCH (08:22)
[2017-06-08] MEDS: amiodarone 200mg tablet PO SCH (08:22)
[2017-06-08] MEDS: rivaroxaban 15mg tablet PO SCH (08:22)
[2017-06-08] MEDS: amLODIPine 5mg tablet PO SCH (08:22)
[2017-06-08] MEDS: insulin Lispro (HumaLOG) vial - multi-dose SQ SCH (08:35)
[2017-06-08] MEDS ORDERED: FURO-149 PO (11:10)
== END 2017-06-08 11:25 | disposition home or self-care (01) | DRG 682 ==
LOC: ER 12:08 → ED HOLD 13:42 → EDBEDREQ 16:53 → PCU 3S 05-26 01:30 → CMPBEDREQ 05-26 01:41
PROVIDERS: ADMIT Family Medicine; ATTEND Internal Medicine
PROC: 4A02XM4 Measurement of Cardiac Total Activity, External Approach (ICD-10-PCS; principal; 2017-05-31)
PROC: 3E073KZ Introduction of Other Diagnostic Substance into Coronary Artery, Percutaneous Approach (ICD-10-PCS; 2017-05-31)
DX: N17.9 Acute kidney failure, unspecified (principal); I50.23 Acute on chronic systolic (congestive) heart failure; G93.40 Encephalopathy, unspecified; I13.0 Hypertensive heart and chronic kidney disease with heart failure and stage 1 through stage 4 chronic kidney disease, or unspecified chronic kidney disease; C64.9 Malignant neoplasm of unspecified kidney, except renal pelvis; I48.91 Unspecified atrial fibrillation; E11.22 Type 2 diabetes mellitus with diabetic chronic kidney disease; E78.5 Hyperlipidemia, unspecified; E87.6 Hypokalemia; F43.10 Post-traumatic stress disorder, unspecified; G47.33 Obstructive sleep apnea (adult) (pediatric); M54.5 Low back pain; K21.9 Gastro-esophageal reflux disease without esophagitis; M06.9 Rheumatoid arthritis, unspecified; M10.9 Gout, unspecified; E83.42 Hypomagnesemia; N18.9 Chronic kidney disease, unspecified; Z90.79 Acquired absence of other genital organ(s); Z79.01 Long term (current) use of anticoagulants; Z79.4 Long term (current) use of insulin; Z79.82 Long term (current) use of aspirin; Z79.899 Other long term (current) drug therapy; Z88.1 Allergy status to other antibiotic agents; Z88.8 Allergy status to other drugs, medicaments and biological substances; Z85.46 Personal history of malignant neoplasm of prostate; Z86.010 Personal history of colon polyps; Z86.73 Personal history of transient ischemic attack (TIA), and cerebral infarction without residual deficits; Z87.891 Personal history of nicotine dependence; Z82.0 Family history of epilepsy and other diseases of the nervous system; Z75.1 Person awaiting admission to adequate facility elsewhere
CPT/HCPCS: 36415; 71045; 78452; 80053; 80061; 80162; 82948; 83036; 83735; 83880; 84132; 84484; 85025; 85610; 85730; 87070; 93005; 93017; 94640; 94760; 96374; 96375; 97110; 97116; 97161; 97530; 99291; A6449; A9500; J0280; J0282; J1160; J1815; J1940; J3490